=== PATIENT | female | born 1980 | race American Indian/Alaskan Native ===

== ENCOUNTER 2017-05-12 00:28 | Emergency (ER) | payer BC, OTHER ==
[2017-05-12] MEDS ORDERED: Acetaminophen/HYDROcodone 325-10 MG Tab PO ONE (00:48)
[2017-05-12] MEDS ORDERED: Lidocaine 2% Viscous Solution 15 ML Cup PO ONE (00:48)
--- NOTE | 2017-05-12 00:54 | EDM.PDOC ---
ED HPI GENERAL MEDICAL PROBLEM - General Chief Complaint: ENT Problem Stated Complaint: TOOTHACHE [id number] Time Seen by Provider: 05/12/17 00:45 Source of Information: Reports: Patient History Limitations: Reports: No Limitations - History of Present Illness INITIAL COMMENTS - FREE TEXT/NARRATIVE: This 36 yo female patient reports to the ED with a 12 hour history of increase dental pain on her right upper jaw. The patient reports she did call the dentist today, was started on Amoxicillin and has an appointment scheduled for Wednesday. The patient reports she has taken ibuprofen and Excederin with no symptom relief. Onset: Today Duration: Hour(s):, Constant, Getting Worse Location: Reports: Face Quality: Reports: Ache, Sharp Severity: Moderate Improves with: Reports: None Worsens with: Reports: None Associated Symptoms: Reports: No Other Symptoms Treatments LANGUAGE ASST: Reports: NSAIDS Left Upper Tooth/Teeth Pain Score (Numeric/FACES): 10 - Related Data Allergies Allergy/AdvReac Type Severity Reaction Status Date / Time No Known Drug Allergies Allergy Cannot Verified 05/12/17 00:43 Remember Home Meds: Home Meds Amoxicillin 500 mg PO QID 05/12/17 [History] Past Medical History HEENT History: Reports: Impaired Vision 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: - Past Surgical History GI Surgical History: Reports: Appendectomy Female Surgical History: Reports: Section Musculoskeletal Surgical History: Reports: Other (See Below) Other Musculoskeletal Surgeries/Procedures:: patient states she had surgery on right ankle in 2008 Social & Family History - Tobacco Use Smoking Status *Q: Never Smoker - Caffeine Use Caffeine Use: Reports: Soda - Alcohol Use Days Per Week of Alcohol Use: 1 Number of Drinks Per Day: 1 Total Drinks Per Week: 1 - Recreational Drug Use Recreational Drug Use: No ED ROS ENT - Review of Systems Review Of Systems: ROS reveals no pertinent complaints other than HPI. ED EXAM, ENT - Physical Exam Exam: See Below Exam Limited By: No Limitations General Appearance: Alert, WD/WN, Moderate Distress Eye Exam: Bilateral Eye: EOMI, Normal Inspection, PERRL Ears: Normal External Exam, Normal Canal, Hearing Grossly Normal, Normal TMs Nose: Normal Inspection, Normal Mucousa, No Blood Mouth/Throat: Dental Pain (left 2nd molar upper) Head: Atraumatic, Normocephalic Neck: Normal Inspection, Supple, Non-Tender, Full Range of Motion Respiratory/Chest: No Respiratory Distress, Lungs Clear, Normal Breath Sounds, No Accessory Muscle Use, Chest Non-Tender Cardiovascular: Normal Peripheral Pulses GI/Abdominal: Normal Bowel Sounds, Soft, Non-Tender, No Organomegaly, No Distention, No Abnormal Bruit, No Mass (Female) Exam: Deferred Rectal (Female) Exam: Deferred Back: Normal Inspection, Full Range of Motion Extremities: Normal Inspection, Normal Range of Motion, Non-Tender, No Pedal Edema, Normal Capillary Refill Neurological: Alert, Oriented, CN II-XII Intact, Normal Cognition, Normal Gait, Normal Reflexes, No Motor/Sensory Deficits Psychiatric: Normal Affect, Normal Mood Skin: Warm, Dry, Intact, Normal Color, No Rash Lymphatic: No Adenopathy Course - Vital Signs Last Recorded V/S: Last Vital Signs Temp 36.4 C 05/12/17 00:36 Pulse 76 05/12/17 00:36 Resp 16 05/12/17 00:36 BP 151/107 H 05/12/17 00:44 Pulse Ox 99 05/12/17 00:36 - Orders/Labs/Meds Meds: Medications Discontinued Medications Generic Name Dose Route Start Last Admin Trade Name Dinesh PRN Reason Stop Dose Admin Hydrocodone Bitart/Acetaminophen 1 tab 05/12/17 00:48 05/12/17 00:53 [place] 325-10 Mg PO 05/12/17 00:49 1 tab ONETIME ONE Administration Lidocaine HCl 15 ml 05/12/17 00:48 05/12/17 00:53 Xylocaine 2% Viscous PO 05/12/17 00:49 15 ml ONETIME ONE Administration Departure - Departure Time of Disposition: 00:51 Disposition: Home, Self-Care 01 Condition: Fair Clinical Impression: Pain, dental - Discharge Information Instructions: Dental Abscess, [id number] Forms: ED Department Discharge Care Plan Goals: The patient was advised of the examination results during the visit. The patient was given an oral dose of [place] and Viscous Lidocaine while in the ED. The patient was discharged with a script for Viscous Lidocaine 2% #100 mL to use 10 mL applied to a cotton ball to the area every 6 hours as needed for pain. The patient should continue taking the antibiotics as prescribed by her dentist. If the patient has any additional symptoms or concerns, the patient should follow-up with her primary care facility or return to the emergency department.
== END 2017-05-12 01:04 | disposition home or self-care (01) ==
LOC: DL.ED 00:28
DX: K08.89 Other specified disorders of teeth and supporting structures (principal)
CPT/HCPCS: 99282; A9270

== ENCOUNTER 2018-08-15 06:02 | Inpatient (IN) | payer BC, OTHER ==
[~2018-08-15 06:02] MED LIST: Citric Acid/Sodium Citrate Solution 30 ML Cup PO ONE; Lactated Ringers 1,000 ML IV ONE; Sodium Chloride 0.9% 10 ML Syringe FLUSH PRN; Tranexamic Acid 1,000 MG in Sodium Chloride 0.9% 100 ML IV PRN; ceFAZolin 2 GM in Premix Bag 1 BAG IV ONE
[2018-08-15] MEDS: Lactated Ringers 1,000 ML IV SCH ×4 (07:00→21:08)
[2018-08-15] MEDS ORDERED: Oxytocin/Normal Saline 60 UNIT/1,000 ML BAG ONE (07:01)
[2018-08-15] MEDS ORDERED: Acetaminophen 325 MG Tab PO PRN (07:35)
[2018-08-15] MEDS ORDERED: Acetaminophen/oxyCODONE 325-5 MG Tab PO PRN ×2 (07:35)
[2018-08-15] MEDS ORDERED: diphenhydrAMINE 50 MG/ML SDV IVPUSH PRN (07:35)
[2018-08-15] MEDS ORDERED: Naloxone 2 MG/2 ML Syringe IVPUSH PRN (07:35)
[2018-08-15] MEDS ORDERED: ePHEDrine 50 MG/ML SDV IVPUSH PRN (07:35)
[2018-08-15] MEDS ORDERED: Misoprostol 400 MCG (4 X 100 MCG TAB) RECTAL PRN (07:35)
[2018-08-15] MEDS ORDERED: Carboprost Tromethamine 250 MCG/1 ML Amp IM ONE (07:35)
[2018-08-15] MEDS ORDERED: Famotidine 20 MG/2 ML SDV IVPUSH ONE (07:37)
[2018-08-15] MEDS ORDERED: Lactated Ringers 1,000 ML IV SCH (07:45)
[2018-08-15] MEDS ORDERED: Oxytocin/Normal Saline 30 UNIT/500 ML BAG IV SCH (08:00)
[2018-08-15] MEDS: Simethicone 80 MG Tab.Chew PO SCH ×4 (11:04→20:58)
[2018-08-15] MEDS: Prenatal Multivitamin with Calcium/Folic Acid/Iron Tab PO SCH (11:04)
[2018-08-15] MEDS ORDERED: Promethazine 25 MG/ML SDV IM PRN (12:45)
[2018-08-15] MEDS: Ketorolac 30 MG/ML SDV IVPUSH SCH ×2 (14:47→20:59)
--- NOTE | 2018-08-15 15:07 | HP ---
CHIEF COMPLAINT: Repeat elective section. HISTORY OF PRESENT ILLNESS: The patient is a 38-year-old, 3, para 2-0-0 - 2 at 37 weeks 1 days' gestation, presenting for elective repeat section due to gestational hypertension and history of section x2. The patient reports active movement. Denies contractions, leakage of fluid, or vaginal bleeding. The patient also denies new-onset headaches, vision changes, shortness of breath, abdominal pain, changes in bowel or bladder function. Reports trace swelling in hands and feet bilaterally. HISTORY: 1. Term female born at 40 weeks 1 day' gestation via low transverse section. weight 3856 g. Name: Krzysztof. 2. Term female infant born at 39 weeks 2 days' gestation via repeat low transverse section. weight 3289 g. Name: Tom. PAST MEDICAL HISTORY: 1. Ankle fracture. 2. Blood type: A positive. 3. History of chicken pox as a child. 4. Gastroenteritis. 5. Migraines. PAST SURGICAL HISTORY: 1. Ankle surgery. 2. Low transverse section x2. 3. Appendectomy. FAMILY HISTORY: No significant family history noted. SOCIAL HISTORY: The patient is to Roger. Has 2 children, Krzysztof and Tom. 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 No smoke exposure. CURRENT MEDICATIONS: 1. Labetalol 100 mg p.o. t.i.d. 2. vitamin with iron. 3. Calcium and vitamin D supplement. Medications taken during : Above-stated medications and aspirin 81 mg once daily. ALLERGIES: No known allergies. REVIEW OF SYSTEMS: HEENT: Denies headaches, change in vision, nasal congestion, changes in hearing or swallowing. Pulmonary: Positive for shortness of breath history, especially when anxious and is worse during . No shortness of breath at this time. Cardiovascular: Denies chest pain, palpitations, or dyspnea on exertion. Denies calf pain. Noted trace swelling in hands and feet bilaterally, worse as days progress. Gastrointestinal: Negative for nausea, vomiting, and abdominal pain. No changes in bowel or bladder habits. Extremities: No stiffness or decreased range of motion. Positive for swelling in hands and feet bilaterally. Skin: No new rashes or dry skin. Neurologic: Denies loss of consciousness, weakness, decreased strength or range of motion. Positive for sciatica in left leg during . OBJECTIVE: Vital Signs: Temperature 98.2 degrees Fahrenheit, HR 104 bpm, BP 132/75, RR 18, O2 saturation 99%. General: Alert, cooperative, in no acute distress. HEENT: Grossly normal. Pulmonary: Lungs are clear to auscultation bilaterally. Cardiovascular: Regular rate and rhythm. No murmurs noted. Abdomen: Soft, nontender. Gravid uterus palpated. Extremities: Trace edema in ankles and hands bilaterally. Neurologic: Grossly normal. RECENT LABORATORY RESULTS: 1. Hematology: WBC 11.5, RBC 4.6, Hgb 13.5, Hct 40, platelet count 248. 2. Chemistry: BUN 10, creatinine 0.6. AST 17, ALT 14. Lactate dehydrogenase 119. 3. Urinalysis: Color is yellow, appearance is slightly cloudy, pH 6.5, specific gravity 1.025, protein trace, glucose negative, ketones trace, occult blood moderate, nitrite negative, bilirubin negative, urobilinogen 0.2, leukocyte esterase negative, urine random creatinine 136, urine random total protein 22, and protein-creatinine ratio 0.16. These labs were taken on 08/11/2018. Today's lab results are pending. GBS negative, blood type A positive, rubella immune, Tdap received on 06/30/2018 and 06/16/2018. Did not receive influenza vaccine. ASSESSMENT: The patient is a 38-year-old 3, para 2 female at 37 weeks 0 days' gestation, presenting for elective repeat section due to gestational hypertension and history of section x2. 1. Gestational hypertension. 2. Advanced maternal age and a multigravida, third trimester. 3. High-risk in third trimester. 4. Abnormal glucose tolerance in . 5. History of section x2. 6. Heartburn during in third trimester. 7. Edema during in third trimester. 8. Intermittent proteinuria affecting in third trimester. 9. Acute cystitis with hematuria history during . PLAN: 1. Elective repeat section today. 2. Routine preoperative care. The patient was seen and evaluated today by myself and Dr. Enid Sevilla. Assessment and plan are under advisement of Dr. Enid Sevilla. -Mackenzie Coburn [facility] Patient seen and examined. Agree with note as scribed on my behalf by LU Collins. -dry cleaner presser 08/16/182027 MODL /[id number] MTDD
[2018-08-15] MEDS: Ondansetron 4 MG/2 ML SDV IV PRN ×2 (17:44→20:59)
[2018-08-15] MEDS: Docusate Sodium 100 MG Cap PO PRN (20:58)
--- NOTE | 2018-08-16 03:02 | OR ---
DATE: 08/15/2018 PREPROCEDURE DIAGNOSES: 1. Gestational hypertension with increasing proteinuria. 2. 37 and 1/7 weeks' intrauterine . 3. History of 2 sections. 4. Heartburn during . 5. Labile blood pressures. 6. Advanced maternal age. POSTPROCEDURE DIAGNOSES: 1. Gestational hypertension with increasing proteinuria. 2. 37 and 1/7 weeks' intrauterine . 3. History of 2 sections. 4. Heartburn during . 5. Labile blood pressures. 6. Advanced maternal age. 7. Delivery of a viable female . CONSENT: Discussed with the patient, her , and parents the indications, risks, benefits, and alternatives of proceeding with repeat low transverse section for delivery of the infant due to gestational hypertension with risk of developing preeclampsia and blood pressures requiring medications for management. Discussed with them risk of infection and plan for preoperative antibiotics; risk of bleeding to the point of requiring a blood transfusion; as well as its inherent risks of injury to any internal organs and adjacent structures including but not limited to large vessels, nerves, veins, intestines, bowel, bladder, uterus, fallopian tubes, ovaries, any other internal organs or adjacent structures, and also potential injury to the baby that would require transfer of the patient and/or baby to a larger center for additional care. Their questions were answered. Consent form signed and can be found in the chart. PROCEDURE PERFORMED: Repeat low transverse section. SURGEON: Enid Stapleton MD. TAR HEEL: Nikki Jaramillo MD. SECOND BIODIESEL TECHNOLOGY MANAGER: Mackenzie Coburn MS-III. ANESTHESIA: Spinal. FINDINGS: Moderate scar tissue noted. Thin lower uterine segment. No obvious window. Baby is a viable female. scores of 9 and 9, and weight 2990g, 6# 9oz. Length was 19 inches. PROCEDURE IN DETAIL: The patient was brought to the operating room, and spinal anesthesia was obtained. She was laid in the dorsal supine position with leftward tilt, and Wu indwelling catheter was placed. After testing, a skin incision was made with scalpel at 8:10 a.m. and carried down to the underlying fascia with cautery controlling any additional bleeding at that time. The fascia was incised in the midline and extended bilaterally using cautery. Fascia then grasped with Moo's, tented up, and rectus muscles were dissected off with cautery and blunt traction. Additional bleeding of the muscles was addressed as well. Inferior fascial edge then grasped with Moo's, tented up, and rectus muscles were dissected off in a similar fashion. The peritoneal cavity was entered with blunt finger dissection and traction. Sebastian O was then placed, and scalpel was used to make the uterine incision superior to the prior scar which was noted to be quite thin with adhesions of the bladder noted as well. Baby was delivered thereafter at 8:20 a.m. 's mouth and nose were bulb suctioned. Three-vessel umbilical cord was doubly clamped and cut, and the baby was taken to the warmer for further evaluation. Cord blood sample was then obtained, and placenta then delivered by gentle cord traction and concomitant uterine massage. Placenta inspected after the case and verified intact. Uterus was cleared of all clots and debris using a dry lap sponge. Hysterotomy site then closed with a running lock suture of 1-0 Vicryl in the usual fashion. There was 1 small area of bleeding on the left side of the incision which was made hemostatic with a single [id number] suture. This layer was irrigated and hemostasis confirmed. Sebastian retractor was then removed, and pericolic gutters were cleared of all clots and debris. Hysterotomy site reinspected and remained hemostatic. Peritoneal and muscle layer was then brought together in the midline. This layer was then irrigated and hemostasis confirmed. Fascia was then closed with a running stitch of 0 looped PDS in the usual fashion. Subcutaneous tissue was irrigated and cleared of any clots and debris, and small bleeders were controlled with cautery. Skin was then closed with bucky. The patient had some vomiting during the case, but otherwise, tolerated the procedure well. There were no complications. The end of surgery was at 8:57 a.m. ESTIMATED BLOOD LOSS: 250 mL. URINE OUTPUT: 50 mL, clear. FLUIDS: 2000 mL of lactated Ringer's and 250 mL with Pitocin. DISPOSITION: Mother and baby will be reunited after mother recovers in the PACU, and baby has been taken down to the nursery. [facility] /[id number] [facility]
[2018-08-16] MEDS: Ketorolac 30 MG/ML SDV IVPUSH SCH (03:18)
--- NOTE | 2018-08-16 07:47 | PN ---
DATE: 08/16/2018 SUBJECTIVE: The patient is a 38-year-old, 3, para 2-0-0-2, status post day #1 of repeat elective low transverse section at 37 weeks 1-day gestation. Overnight, the patient had no complaints. She is slow to tolerate activity and has not yet gotten out of bed. She is planning to do that this morning. She is tolerating solid foods. She still has a Wu catheter in place. She is passing flatus, has not yet had a bowel movement. She is formula feeding. She endorses minimal cramping and bleeding along with minimal discomfort at this time. The patient has no other concerns. OBJECTIVE: Vital Signs: Temp is 98.3 degrees Fahrenheit, HR 85 beats per minute, BP 126/79, RR 18 breaths per minute, O2 saturation 93% on room air. General: The patient is alert, cooperative, in no acute distress. HEENT: Grossly normal. Cardiovascular: Regular rate and rhythm. No murmurs noted. Pulmonary: No increased work of breathing. Fine crackles heard in lower lung bases bilaterally. Abdomen: Soft, nontender, and nondistended. Normoactive bowel sounds. Uterus palpated 5 cm below the umbilicus, firm. Extremities: No edema or erythema. Calves are nontender to palpation. SCDs are on and being utilized. Neurologic: Normal range of motion and strength in extremities. Grossly normal. ASSESSMENT: The patient is postoperative day #1 from elective repeat low- transverse section and delivery of a term female infant at 37 weeks 1- day gestation. Doing well. 1. 2. POD#1 repeat 3. Labial HTN in 4. Obesity 5. Heartburn PLAN: 1. Continue routine postoperative cares. 2. Formula feeding. The patient was seen and evaluated today by myself and Dr. Enid Sevilla. Assessment and plan are under advisement of Dr. Sevilla. .Patient seen and examined. Agree with note as scribed on my behalf by Mackenzie Coburn MS3. -professor of biochemistry 08/16/18 2102 MODL /[id number] [facility]
[2018-08-16] MEDS: Simethicone 80 MG Tab.Chew PO SCH ×4 (08:16→21:08)
[2018-08-16] MEDS: Prenatal Multivitamin with Calcium/Folic Acid/Iron Tab PO SCH (08:17)
[2018-08-16] MEDS ORDERED: Oxytocin/Normal Saline 30 UNIT/500 ML BAG IV ONE (13:45)
[2018-08-16] MEDS ORDERED: Lactated Ringers 1,000 ML IV ONE (14:42)
[2018-08-16] MEDS ORDERED: Ketorolac 30 MG/ML SDV IVPUSH ONE (14:42)
[2018-08-16] MEDS ORDERED: Ondansetron 4 MG/2 ML SDV IV ONE (14:42)
[2018-08-16] MEDS ORDERED: Morphine PF 1 MG/ML Amp ONE (14:42)
[2018-08-16] MEDS ORDERED: ePHEDrine 50 MG/ML SDV IV ONE (14:42)
[2018-08-16] MEDS ORDERED: Promethazine 25 MG/ML SDV IM ONE (14:42)
[2018-08-16] MEDS ORDERED: Dexamethasone 4 MG/ML SDV IV ONE (14:42)
[2018-08-16] MEDS: Ibuprofen 800 MG Tab PO PRN ×2 (15:18→22:50)
[2018-08-16] MEDS ORDERED: Simethicone 80 MG Tab.Chew PO PRN (19:49)
[2018-08-16] MEDS ORDERED: Calcium Carbonate 500 MG Tab.Chew PO PRN (21:02)
[2018-08-16] MEDS: Docusate Sodium 100 MG Cap PO PRN (21:09)
[2018-08-17] MEDS: Prenatal Multivitamin with Calcium/Folic Acid/Iron Tab PO SCH (08:59)
[2018-08-17] MEDS: Docusate Sodium 100 MG Cap PO PRN (08:59)
[2018-08-17] MEDS: Simethicone 80 MG Tab.Chew PO SCH (08:59)
[2018-08-17] MEDS: Ibuprofen 800 MG Tab PO PRN (09:00)
--- NOTE | 2018-08-17 20:27 | PN ---
DATE: 08/17/2018 SUBJECTIVE: The patient is a 38-year-old 3, para 2-0-0-2, now para 3-0- 0-3, status post day #2 of repeat elective low-transverse section at 37 weeks 1 day gestation. Overnight, the patient continues to have no complaints. She is ambulating, tolerating general diet, stooling and passing flatus and urinating appropriately. She is formula feeding her . She endorses minimal cramping and bleeding along with only mild discomfort at this time. The patient has no other concerns. OBJECTIVE: Vital Signs: Temp 98.7, HR 92 b.p.m., BP 143/80, RR 18 breaths per minute, and O2 sat 97% on room air. General: The patient is alert, cooperative, in no acute distress. HEENT: Grossly normal. Pulmonary: Lungs are clear to auscultation bilaterally. Cardiovascular: Regular rate and rhythm. No murmurs noted. Abdomen: Soft, nontender, nondistended, normoactive bowel sounds. Uterus palpated 5 cm below the umbilicus. Firm. Incision: Clean, dry, and intact. No erythema or edema noted. Incision is without dressing or bandages. Chanda are present. There is no weeping of serosanguineous fluid. Extremities: No edema or erythema. Calves are nontender to palpation. Neurologic: Normal range of motion and strength in extremities. Grossly normal. LABORATORY DATA: Recent lab results: Hematology: WBC 10.7, RBC 3.84, HGB 11.2, hematocrit 34.0, platelet count is 191. ASSESSMENT: Postoperative day #2 from elective repeat low-transverse section and delivery of early term female at 37 weeks 1 day gestation. Doing well. 1. 3, para 3-0-0-3. 2. Postoperative day #2 repeat section. 3. Labile hypertension in . 4. Obesity. 5. Heartburn. PLAN: 1. Continue routine postoperative cares. 2. Formula feeding . 3. The patient voiced desire to be discharged later today. The patient was seen and evaluated today by myself and Dr. Enid Sevilla. Assessment and plan are under advisement of Dr. Sevilla. Patient seen and examined. Agree with note as scribed on my behalf by Mackenzie Coburn, MS 3. -[facility] 08/17/18 2151. MODL /[id number] ASIM
--- NOTE | 2018-08-18 01:30 | DISCH ---
ADMITTING DIAGNOSES: 1. Gestational hypertension. 2. Advanced maternal age in a multigravida, third trimester. 3. High-risk in third trimester. 4. Abnormal glucose tolerance and . 5. History of section x2. 6. Heartburn during in third trimester. 7. Edema during in third trimester. 8. Intermittent proteinuria affecting in third trimester. 9. Acute cystitis with hematuria history during . 10.Intrauterine , 37 weeks and 1-day gestation. 11. 3, para 2-0-0-2. DISCHARGE DIAGNOSES: 1. Gestational hypertension. 2. Advanced maternal age in a multigravida, third trimester. 3. High-risk in third trimester. 4. Abnormal glucose tolerance and . 5. History of section x2. 6. Heartburn during in third trimester. 7. Edema during in third trimester. 8. Intermittent proteinuria affecting in third trimester. 9. Acute cystitis with hematuria history during . 10.Intrauterine , 37 weeks and 1-day gestation. 11. 3, para 2-0-0-2. 12.Group B streptococcus negative, A positive, rubella immune. 13.Delivery via elective repeat low transverse section. BRIEF HISTORY: The patient is a 38-year-old female with the above listed diagnoses who presented to Labor and Delivery for an elective repeat low transverse section and delivery of an early term girl. After the patient presented to Labor and Delivery, the patient underwent section without complications. The section was scheduled at this time due to labile/gestational hypertension treated with medication. Please see surgical delivery note for details. HOSPITAL COURSE: Good. The patient reported minimal cramping and bleeding. She was able to tolerate solid foods on postop day #1 along with ambulation, urination, and passing of flatus. She did report some tightness in the chest on postop hospital day #1 which relieved with ambulation and use of incentive spirometry. Incision was monitored and found to be healing well, held together with bucky. born at 0820 hours. scores were 9 and 9 at 1 minute and 5 minutes respectively. spent lots of time in room with family. The patient and are bottle feeding with formula. Due to ease of hospital course, the patient expressed eagerness to be discharged on postop hospital day #2. DISCHARGE CONDITION: Good. DISCHARGE PHYSICAL EXAMINATION: Vital Signs: Temperature 98.7 degrees Fahrenheit, HR 92 bpm, BP 143/80, RR 18 breaths per minute, and oxygen saturation 97% on room air. General: Awake, alert, and cooperative; in no acute distress. HEENT: Grossly normal. Pulmonary: Lungs are clear to auscultation bilaterally. Cardiovascular: Regular rate and rhythm. No murmurs noted. Abdomen: Soft, nondistended, and nontender. Normoactive bowel sounds. Firm uterus palpated 5 cm below the umbilicus. Incision: Incision without bandages or draping. Sutures were visualized. Incision was clean, dry, and intact. No erythema, edema, or serosanguineous fluid leakage. Extremities: No edema or erythema. No tenderness to palpation of calves bilaterally. Neurologic: Grossly normal. LABORATORY DATA: Hematology: WBC 10.7, RBC 3.84, hemoglobin 11.2, hematocrit 34.0, and platelet count 191. DISCHARGE MEDICATIONS: 1. Percocet. 2. Colace. 3. Ibuprofen. 4. vitamin. DISPOSITION: Home with family. FOLLOWUP: The patient is advised to follow up in clinic with Dr. Enid Sevilla this 08/19/2018, at 2:45 p.m. The patient is in agreement with this plan. Discharge evaluation was completed by myself and Dr. Enid Sevilla. Discharge evaluation is under advisement of Dr. Enid Sevilla. Patient seen and examined. Agree with note as scribed on my behalf by Mackenzie Coburn MS3. -linux solaris administrator 08/18/182013 [facility] /[id number] MTDNoe
== END 2018-08-17 12:38 | disposition home or self-care (01) | DRG 540 ==
LOC: DL.OB 06:02 → DL.MS 07:21 → OBSVTOIN 08:20
PROVIDERS: ADMIT Family Medicine; ATTEND Family Medicine
PROC: 10D00Z1 Extraction of Products of Conception, Low, Open Approach (ICD-10-PCS; principal; 2018-08-15)
DX: O34.211 Maternal care for low transverse scar from previous cesarean delivery (principal); O14.93 Unspecified pre-eclampsia, third trimester; O09.523 Supervision of elderly multigravida, third trimester; O99.810 Abnormal glucose complicating pregnancy; R12 Heartburn; Z3A.37 37 weeks gestation of pregnancy; Z37.0 Single live birth; Z90.49 Acquired absence of other specified parts of digestive tract
CPT/HCPCS: 36415; 59025; 82570; 84156; 85025; 85027; 86850; 86900; 86901; 94010; A9270-GY; J0690; J1100; J1885; J2274; J2405; J2550; J2590; J3490; J7120

== ENCOUNTER 2019-06-05 09:43 | Inpatient (IN) | payer BC, OTHER ==
--- NOTE | 2019-06-05 10:24 | EDM.PDOC ---
ED HPI GENERAL MEDICAL PROBLEM - General Chief Complaint: Fever Stated Complaint: POSSIBLE FLU Time Seen by Provider: 06/05/19 10:24 Source of Information: Reports: Patient, Family, RN, RN Notes Reviewed History Limitations: Reports: No Limitations - History of Present Illness INITIAL COMMENTS - FREE TEXT/NARRATIVE: Patient to ER with c/o fever and chills since yesterday. Patient admits to nausea but no vomiting. Patient c/o ear and throat pain. Denies exposure to influenza. States she has had a cough for about a week. Denies chest pains and SOB, but c/o severe body aches. Onset: Gradual Onset Date: 06/04/19 Throat Pain Score (Numeric/FACES): 10 head Pain Score (Numeric/FACES): 8 - Related Data Allergies Allergy/AdvReac Type Severity Reaction Status Date / Time No Known Allergies Allergy Verified 06/05/19 12:27 Home Meds: Home Meds Cefdinir [Omnicef] 300 mg PO BID #14 cap 06/08/19 [Rx] Doxycycline [Vibramycin] 100 mg PO Q12HR #14 cap 06/08/19 [Rx] Fluticasone Propionate [Flonase] 0 gm NASBOTH DAILY #1 bottle 06/08/19 [Rx] guaiFENesin [Mucinex] 600 mg PO BID #20 tab.er 06/08/19 [Rx] Past Medical History HEENT History: Reports: Impaired Vision Other HEENT History: wears glasses Cardiovascular History: Reports: Other (See Below) Other Cardiovascular History: intermittent hypertension Respiratory History: Reports: None Gastrointestinal History: Reports: GERD Genitourinary History: Reports: None 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: Musculoskeletal History: Reports: None Neurological History: Reports: None Psychiatric History: Reports: None Endocrine/Metabolic History: Reports: None Hematologic History: Reports: None Immunologic History: Reports: None Oncologic (Cancer) History: Reports: None Dermatologic History: Reports: None - Infectious Disease History Infectious Disease History: Reports: Chicken Pox - Past Surgical History Head Surgeries/Procedures: Reports: None Cardiovascular Surgical History: Reports: None GI Surgical History: Reports: Appendectomy Female Surgical History: Reports: Section Musculoskeletal Surgical History: Reports: Other (See Below) Other Musculoskeletal Surgeries/Procedures:: patient states she had surgery on right ankle in 2008 Social & Family History - Family History Family Medical History: Noncontributory - Tobacco Use Smoking Status *Q: Never Smoker Second Hand Smoke Exposure: No - Caffeine Use Caffeine Use: Reports: Coffee, Soda Other Caffeine Use: occ - Recreational Drug Use Recreational Drug Use: No ED ROS GENERAL - Review of Systems Review Of Systems: Comprehensive ROS is negative, except as noted in HPI. ED EXAM, GENERAL - Physical Exam Exam: See Below Exam Limited By: No Limitations General Appearance: Alert, WD/WN, Moderate Distress Eye Exam: Bilateral Eye: EOMI, Normal Inspection Ears: Normal External Exam, Hearing Grossly Normal Ear Exam: Bilateral Ear: TM normal Nose: Normal Inspection Throat/Mouth: Normal Inspection, Normal Voice, No Airway Compromise, Other ( sore throat) Head: Atraumatic, Normocephalic Neck: Normal Inspection, Supple, Non-Tender, Full Range of Motion Respiratory/Chest: No Respiratory Distress, No Accessory Muscle Use, Chest Non- Tender, Crackles (bases bilaterally) Cardiovascular: Normal Peripheral Pulses, Regular Rate, Rhythm, No Edema, No Gallop, No JVD, No Murmur, No Rub Peripheral Pulses: 2+: Radial (L), Radial (R) GI/Abdominal: Normal Bowel Sounds, Soft, Non-Tender (Female) Exam: Deferred Rectal (Female) Exam: Deferred Back Exam: Normal Inspection, Full Range of Motion, NT Extremities: Normal Inspection, Normal Range of Motion, Non-Tender, Normal Capillary Refill, No Pedal Edema Neurological: Alert, Oriented, CN II-XII Intact, Normal Cognition, Normal Gait, Normal Reflexes, No Motor/Sensory Deficits Psychiatric: Normal Affect, Normal Mood, Anxious Skin Exam: Warm, Dry, Intact, Normal Color, No Rash Lymphatic: No Adenopathy Course - Vital Signs Last Recorded V/S: Last Vital Signs Temp 97.1 F 06/08/19 07:07 Pulse 88 06/08/19 07:07 Resp 20 06/08/19 07:07 BP 134/91 H 06/08/19 07:07 Pulse Ox 96 06/08/19 07:07 - Orders/Labs/Meds Labs: Laboratory Tests 06/05/19 06/05/19 06/05/19 Range/Units 10:50 10:50 10:50 WBC 21.5 H (5.0-10.0) 10^3/uL RBC 4.94 (4.2-5.4) 10^6/uL Hgb 13.2 D (12.0-16.0) g/dL Hct 39.2 (37.0-47.0) % MCV 79.4 L D (80-100) fL MCH 26.7 L (27.0-34.0) pg MCHC 33.7 (33.0-35.0) g/dL Plt Count 267 D (150-450) 10^3/uL Neut % (Auto) 91.1 H (42.2-75.2) % Lymph % (Auto) 3.9 L (20.5-50.1) % [place] % (Auto) 4.9 (2-8) % Eos % (Auto) 0.0 L (1.0-3.0) % Baso % (Auto) 0.1 (0.0-1.0) % Sodium 133 L (135-145) mmol/L Potassium 3.4 L (3.6-5.0) mmol/L Chloride 100 L (101-111) mmol/L Carbon Dioxide 22.0 (21.0-31.0) mmol/L Anion Gap 14.4 BUN 10 (7-18) mg/dL Creatinine 0.7 (0.6-1.3) mg/dL Est Cr Clr Drug Dosing 104.01 mL/min Estimated GFR (MDRD) > 60 BUN/Creatinine Ratio 14.28 Glucose 107 H (74-105) mg/dL Lactic Acid 1.7 (0.5-2.2) mmol/L Calcium 8.7 (8.4-10.2) mg/dl Total Bilirubin 0.8 (0.2-1.0) mg/dL AST 26 (10-42) IU/L ALT 34 (10-60) IU/L Alkaline Phosphatase 73 (42-121) IU/L Total Protein 8.0 (6.7-8.2) g/dl Albumin 3.9 (3.2-5.5) g/dl Globulin 4.1 Albumin/Globulin Ratio 0.95 influenza A: Negative Influenza B: Negative Rapid strep: Negative Meds: Medications Discontinued Medications Generic Name Dose Route Start Last Admin Trade Name Freq PRN Reason Stop Dose Admin Acetaminophen 650 mg 06/05/19 10:30 06/05/19 11:03 Tylenol PO 06/05/19 10:31 650 mg NOW ONE Administration Acetaminophen 650 mg 06/05/19 14:06 06/06/19 21:27 Tylenol PO 650 mg Q4H PRN Administration Pain Benzocaine/Menthol 1 lozenge 06/06/19 11:10 06/07/19 08:28 Cepacol Sore Throat MUCMEM 1 lozenge Q4H PRN Administration Sore Throat Docusate Sodium 100 mg 06/05/19 13:17 Colace PO DAILY PRN Constipation Doxycycline Hyclate 100 mg 06/08/19 10:30 06/08/19 10:27 Vibramycin PO 100 mg Q12HR FREDIS Administration Enoxaparin Sodium 40 mg 06/06/19 09:00 06/08/19 08:40 Lovenox SUBCUT 40 mg DAILY FREDIS Administration Fluticasone Propionate 0 gm 06/05/19 13:25 06/08/19 08:40 Flonase NASBOTH 1 spray DAILY FREDIS Administration Guaifenesin 600 mg 06/06/19 11:11 06/08/19 08:40 Mucinex PO 600 mg BID FREDIS Administration Sodium Chloride 1,000 mls @ 999 mls/hr 06/05/19 10:30 06/05/19 10:54 Normal Saline IV 06/05/19 11:30 999 mls/hr .BOLUS ONE Administration Ceftriaxone Sodium 1 gm/ 50 mls @ 50 mls/hr 06/05/19 11:36 06/05/19 11:50 Sodium Chloride IV 06/05/19 12:35 50 mls/hr ONETIME ONE Administration Sodium Chloride 1,000 mls @ 999 mls/hr 06/05/19 11:36 06/05/19 12:33 Normal Saline IV 06/05/19 12:36 999 mls/hr .BOLUS ONE Administration Azithromycin 500 mg/ Sodium 250 mls @ 250 mls/hr 06/05/19 11:48 06/05/19 13: 41 Chloride IV 06/05/19 12:47 Not Given ONETIME ONE Azithromycin 500 mg/ Sodium 250 mls @ 250 mls/hr 06/05/19 13:30 06/05/19 13: 40 Chloride IV 06/05/19 14:29 250 mls/hr ONETIME ONE Administration Ceftriaxone Sodium 2 gm/ 100 mls @ 200 mls/hr 06/06/19 13:00 06/07/19 17:24 Sodium Chloride IV Infused Q24H [facility] Infusion Azithromycin 500 mg/ Sodium 250 mls @ 250 mls/hr 06/06/19 13:30 Chloride IV Q24H FREDIS Ceftriaxone Sodium 1 gm/ 50 mls @ 100 mls/hr 06/05/19 18:00 06/05/19 17:59 Sodium Chloride IV 06/05/19 18:29 100 mls/hr ONETIME ONE Administration Vancomycin HCl 1.5 gm/ Premix 300 mls @ 200 mls/hr 06/06/19 12:00 06/06/19 13 :50 IV 06/06/19 13:29 Infused ONETIME ONE Infusion Vancomycin HCl 1.25 gm/ Sodium 250 mls @ 166.667 mls/hr 06/06/19 20:00 23:45 Chloride IV Not Given Q8H [facility] Vancomycin HCl 1.25 gm/ Sodium 250 mls @ 166.667 mls/hr 06/07/19 22:00 07:35 Chloride IV Infused Q8H [facility] Infusion Ibuprofen 200 mg 06/05/19 19:30 06/07/19 04:27 Motrin PO 200 mg Q6H PRN Administration Pain/Fever Ketorolac Tromethamine 30 mg 06/05/19 10:30 06/05/19 10:58 Toradol IVPUSH 06/05/19 10:31 30 mg ONETIME ONE Administration Ondansetron HCl 4 mg 06/05/19 10:30 06/05/19 10:56 Zofran IV 06/05/19 10:31 4 mg ONETIME ONE Administration Ondansetron HCl 4 mg 06/05/19 13:26 Zofran IV Q6H PRN Nausea/Vomiting Potassium Chloride 40 meq 06/06/19 09:15 06/06/19 10:34 Klor-Con 10 PO 06/06/19 09:16 40 meq ONETIME ONE Administration Potassium Chloride 20 meq 06/06/19 12:00 06/06/19 11:51 Klor-Con 10 PO 06/06/19 12:01 20 meq ONETIME ONE Administration Potassium Chloride 40 meq 06/07/19 08:18 06/07/19 09:52 Klor-Con 10 PO 06/07/19 08:19 40 meq ONETIME ONE Administration Potassium Chloride 40 meq 06/08/19 09:37 06/08/19 10:07 Klor-Con 10 PO 06/08/19 09:38 40 meq ONETIME ONE Administration Sodium Chloride 10 ml 06/05/19 10:28 06/06/19 14:19 Saline Flush FLUSH 10 ml ASDIRECTED PRN Administration Keep Vein Open Vancomycin HCl 1 dose 06/06/19 11:15 Pharmacy To Dose - Vancomycin .XX ASDIRECTED FREDIS - Radiology Interpretation Free Text/Narrative:: Chest xray: FINDINGS: Lungs: Atelectasis and/or early infiltrate noted within the lung bases, greater on the right. Pleural space: Unremarkable. No pleural effusion. No pneumothorax. Heart/Mediastinum: Unremarkable. No cardiomegaly. Diaphragm: There is nonspecific elevation of the right hemidiaphragm. Bones/joints: Unremarkable. IMPRESSION: Atelectasis and/or early infiltrate noted within the lung bases, greater on the right. Thank you for allowing us to participate in the care of your patient. Dictated and Authenticated by: Joel Petit DO 06/05/2019 11:19 AM Central Time ([place] & [place]) See rad report - Re-Assessments/Exams Free Text/Narrative Re-Assessment/Exam: 06/05/19 11:40 Discussed patient case with Dr. Khoury who agreed to accept the patient for inpatient admission. Departure - Departure Time of Disposition: 12:14 Disposition: Admitted As Inpatient 68 Condition: Fair Clinical Impression: Pneumonia Qualifiers: Pneumonia type: due to unspecified organism Laterality: right Lung location: unspecified part of lung Qualified Code(s): J18.9 - Pneumonia, unspecified organism - Discharge Information *PRESCRIPTION DRUG MONITORING PROGRAM REVIEWED*: No *COPY OF PRESCRIPTION DRUG MONITORING REPORT IN PATIENT ENRIKE: No Sepsis Event Note - Evaluation Sepsis Screening Result: Possible Sepsis Risk - Focused Exam Date Exam was Performed: 06/15/19 Time Exam was Performed: 14:02
[2019-06-05] MEDS ORDERED: Sodium Chloride 0.9% 1,000 ML IV ONE ×2 (10:30→11:36)
[2019-06-05] MEDS ORDERED: Ketorolac 30 MG/ML SDV IVPUSH ONE (10:30)
[2019-06-05] MEDS ORDERED: Acetaminophen 325 MG Tab PO ONE (10:30)
[2019-06-05] MEDS ORDERED: Ondansetron 4 MG/2 ML SDV IV ONE (10:30)
[2019-06-05] MEDS: Sodium Chloride 0.9% 10 ML Syringe FLUSH PRN ×2 (11:01→20:26)
[2019-06-05 11:17] LABS: ANION GAP 14.4; CHLORIDE,CL 100 mmol/L (101-111); SODIUM,NA 133 mmol/L (135-145)
[2019-06-05] MEDS ORDERED: cefTRIAXone 1 GM in Sodium Chloride 0.9% 50 ML IV ONE ×2 (11:36→18:00)
[2019-06-05] MEDS ORDERED: Azithromycin 500 MG in Sodium Chloride 0.9% 250 ML IV ONE ×2 (11:48→13:30)
--- NOTE | 2019-06-05 13:01 | PCM.HP ---
H&P History of Present Illness - General Date of Service: 06/05/19 Admit Problem/Dx: Admitted with: Fever, Chill, weakness, sore throat Source of Information: Patient, Old Records History Limitations: Reports: No Limitations - History of Present Illness Initial Comments - Free Text/Narative: This is a 38 Y/O Moderately obese pleasant Female with no significant past medical history except Hypertension during her , No history of glucose intolerance, came to ED with complain of headache, sore throat, Fever/Chill, Nausea all started yesterday ( 06/04/19) around 2-3 PM and progressively getting worse. Her throat swab was negative for Strep and Influenza A and B were also negative. Lab showed elevated White count 21k and sodium of 133 meq/ L. CXR showed B/L lower lobe infiltrates and admitted for Likely CAP. Onset of Symptoms: Reports: Gradual Duration of Symptoms: Reports: Day(s):, Getting Worse Context: Denies: Sick Contact Associated Symptoms: Reports: Fever/Chills, Weakness Throat Pain Score (Numeric/FACES): 10 - Related Data Allergies/Adverse Reactions: Allergies Allergy/AdvReac Type Severity Reaction Status Date / Time No Known Allergies Allergy Verified 06/05/19 12:27 Home Medications: Home Meds . 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: Musculoskeletal History: Reports: None Neurological History: Reports: None Psychiatric History: Reports: None Endocrine/Metabolic History: Reports: None Hematologic History: Reports: None Immunologic History: Reports: None Oncologic (Cancer) History: Reports: None Dermatologic History: Reports: None - Infectious Disease History Infectious Disease History: Reports: Chicken Pox - Past Surgical History Head Surgeries/Procedures: Reports: None Cardiovascular Surgical History: Reports: None GI Surgical History: Reports: Appendectomy Female Surgical History: Reports: Section Musculoskeletal Surgical History: Reports: Other (See Below) Other Musculoskeletal Surgeries/Procedures:: patient states she had surgery on right ankle in 2008 Social & Family History - Family History Family Medical History: Noncontributory - Tobacco Use Smoking Status *Q: Never Smoker Second Hand Smoke Exposure: No - Caffeine Use Caffeine Use: Reports: Coffee, Soda Other Caffeine Use: occ - Recreational Drug Use Recreational Drug Use: No H&P Review of Systems - Review of Systems: Review Of Systems: See Below General: Reports: Fever, Chills, Weakness, Fatigue, Decreased Appetite HEENT: Reports: Sinus Congestion, Sore Throat. Denies: Ear Pain, Post Nasal Drip, Visual Changes Pulmonary: Denies: Shortness of Breath, Wheezing, Cough, Sputum Cardiovascular: Denies: Dyspnea on Exertion, Edema, Blood Pressure Problem Gastrointestinal: Reports: Nausea. Denies: Abdominal Pain, Diarrhea, Vomiting Genitourinary: Denies: Dysuria, Burning, Urgency, Flank Pain Musculoskeletal: Denies: Neck Pain, Shoulder Pain, Foot Pain, Muscle Stiffness Skin: Denies: Jaundice Exam - Exam Exam: See Below - Vital Signs Vital Signs: Last Vital Signs Temp 38.7 C H 06/05/19 11:37 Pulse 129 H 06/05/19 11:37 Resp 20 06/05/19 10:04 BP 143/78 H 06/05/19 11:37 Pulse Ox 94 L 06/05/19 11:37 Weight: 103.873 kg - Exam Quality Assessment: DVT Prophylaxis. No: Supplemental Oxygen, Central Line/PICC , Urinary Catheter General: Alert, Oriented, Cooperative HEENT: Conjunctiva Clear, EOMI, Hearing Intact, Mucosa Moist & [place], Pupils Equal Neck: Full Range of Motion. No: Lymphadenopathy, Thyromegaly Lungs: Clear to Auscultation, Normal Respiratory Effort. No: Crackles, Wheezing Cardiovascular: Regular Rate, Regular Rhythm, Normal S1, Normal S2 GI/Abdominal Exam: Normal Bowel Sounds, Soft, Non-Tender, No Organomegaly, No Distention. No: Guarding, Rigid, Rebound (Female) Exam: Deferred Rectal (Female) Exam: Deferred Back Exam: Normal Inspection, Full Range of Motion Extremities: Normal Inspection, No Pedal Edema Neurological: Cranial Nerves Intact, Reflexes Equal Bilateral Neuro Extensive - Mental Status: Alert, Oriented x3, Normal Mood/Affect, Normal Cognition, Memory Intact Neuro Extensive - Motor, Sensory, Reflexes: CN II-XII Intact, Normal Gait, Normal Reflexes Psychiatric: Alert, Normal Affect, Normal Mood - Patient Data Lab Results Last 24 hrs: Laboratory Results - last 24 hr 06/05/19 06/05/19 06/05/19 Range/Units 10:50 10:50 10:50 WBC 21.5 H (5.0-10.0) 10^3/uL RBC 4.94 (4.2-5.4) 10^6/uL Hgb 13.2 D (12.0-16.0) g/dL Hct 39.2 (37.0-47.0) % MCV 79.4 L D (80-100) fL MCH 26.7 L (27.0-34.0) pg MCHC 33.7 (33.0-35.0) g/dL Plt Count 267 D (150-450) 10^3/uL Neut % (Auto) 91.1 H (42.2-75.2) % Lymph % (Auto) 3.9 L (20.5-50.1) % [place] % (Auto) 4.9 (2-8) % Eos % (Auto) 0.0 L (1.0-3.0) % Baso % (Auto) 0.1 (0.0-1.0) % Sodium 133 L (135-145) mmol/L Potassium 3.4 L (3.6-5.0) mmol/L Chloride 100 L (101-111) mmol/L Carbon Dioxide 22.0 (21.0-31.0) mmol/L Anion Gap 14.4 BUN 10 (7-18) mg/dL Creatinine 0.7 (0.6-1.3) mg/dL Est Cr Clr Drug Dosing 104.01 mL/min Estimated GFR (MDRD) > 60 BUN/Creatinine Ratio 14.28 Glucose 107 H (74-105) mg/dL Lactic Acid 1.7 (0.5-2.2) mmol/L Calcium 8.7 (8.4-10.2) mg/dl Total Bilirubin 0.8 (0.2-1.0) mg/dL AST 26 (10-42) IU/L ALT 34 (10-60) IU/L Alkaline Phosphatase 73 (42-121) IU/L Total Protein 8.0 (6.7-8.2) g/dl Albumin 3.9 (3.2-5.5) g/dl Globulin 4.1 Albumin/Globulin Ratio 0.95 Result Diagrams: 06/05/19 10:50 06/05/19 10:50 [place] Results Last 24 hrs: Microbiology 06/05/19 10:48 Anaerobic Blood Culture - Final Blood - Venous - Lab Draw 06/05/19 10:02 Influenza Type A Antigen Screen - Final Nasal, Unspecified NEGATIVE INFLUENZA A VIRUS AG REFERENCE RANGE: NEGATIVE Influenza Type B Antigen Screen - Final NEGATIVE INFLUENZA B VIRUS AG REFERENCE RANGE: NEGATIVE 06/05/19 10:02 Group A Streptococcus Rapid Screen - Final Throat NEGATIVE STREP A SCREEN REFERENCE RANGE: NEGATIVE - Problem List (1) Fever and chills SNOMED Code(s): 838896800 ICD Code: R50.9 - FEVER, UNSPECIFIED Status: Acute Current Visit: Yes (2) CAP (community acquired pneumonia) SNOMED Code(s): 767265210 ICD Code: J18.9 - PNEUMONIA, UNSPECIFIED ORGANISM Status: Acute Current Visit: Yes (3) Sore throat SNOMED Code(s): 241055787 ICD Code: J02.9 - ACUTE PHARYNGITIS, UNSPECIFIED Status: Acute Current Visit: Yes (4) Nausea SNOMED Code(s): 493963058 ICD Code: R11.0 - NAUSEA Status: Acute Current Visit: Yes Problem List Initiated/Reviewed/Updated: Yes Orders Last 24hrs: Active Orders 24 hr Category Date Time Status Peripheral IV Care [RC] . DIRECTED Care 06/05/19 10:29 Active CULTURE BLOOD [BC] Stat Lab 06/05/19 10:48 Results CULTURE BLOOD [BC] Stat Lab 06/05/19 10:50 Received CULTURE STREP A CONFIRMATION [RM] Stat Lab 06/05/19 10:02 Results HCG QUALITATIVE,URINE [URCHEM] Routine Lab 06/05/19 12:51 Ordered STREP SCRN A RAPID W CULT CONF [RM] Stat Lab 06/05/19 10:02 Results UA W/DEVANTE RFLX IF INDICATED [URIN] Routine Lab 06/05/19 12:51 Ordered Sodium Chloride 0.9% [Saline Flush] Med 06/05/19 10:28 Active 10 ml FLUSH ASDIRECTED PRN Blood Culture x2 Reflex Set [OM.PC] Stat Oth 06/05/19 10:29 Ordered Peripheral IV Insertion Adult [OM.PC] Stat Oth 06/05/19 10:29 Ordered Medication Orders Sodium Chloride (Saline Flush) 10 ml FLUSH ASDIRECTED PRN PRN Reason: Keep Vein Open Last Admin: 06/05/19 11:01 Dose: 10 ml Assessment/Plan Comment:: This is a 38 Y/O Moderately obese, pleasant Female with no significant past medical history except Hypertension during her , No history of glucose intolerance, came to ED with complain of headache, sore throat, Fever/Chill, Nausea all started yesterday ( 06/04/19) around 2-3 PM and progressively getting worse. Her throat swab was negative for Strep and Influenza A and B were also negative. Lab showed elevated White count 21k and sodium of 133 meq/ L. CXR showed B/L lower lobe infiltrates and admitted for Like CAP 1. Likely Community acquired pneumonia: Pt had CXR showing B/L lung base Infiltrate -Will continue Ceftriaxone and Azithromycin -Follow B/C and Urine Culture 2. Sore throat: throat swab is negative for strep and also she Negative for Influenza A and B 3. Nausea: Will start Zofran as needed 4. Fever/Chill: Continue abx and Tylenol as needed DVT prophylaxis: start Enoxaparin Code Status: Full Code
[2019-06-05] MEDS ORDERED: Docusate Sodium 100 MG Cap PO PRN (13:17)
[2019-06-05] MEDS ORDERED: Ondansetron 4 MG/2 ML SDV IV PRN (13:26)
[2019-06-05] MEDS: Acetaminophen 325 MG Tab PO PRN (16:23)
[2019-06-05] MEDS: Fluticasone Propionate Nasal Spray 16 GM Bottle NASBOTH SCH (16:24)
[2019-06-05] MEDS: Ibuprofen 200 MG Tab PO PRN (20:22)
[2019-06-06] MEDS: Ibuprofen 200 MG Tab PO PRN ×3 (02:44→19:41)
[2019-06-06 07:04] LABS: ANION GAP 13.1; CHLORIDE,CL 101 mmol/L (101-111); SODIUM,NA 134 mmol/L (135-145)
[2019-06-06] MEDS ORDERED: Potassium Chloride 10 MEQ Tab.ER PO ONE ×2 (09:15→12:00)
[2019-06-06] MEDS: Fluticasone Propionate Nasal Spray 16 GM Bottle NASBOTH SCH (10:36)
[2019-06-06] MEDS: Enoxaparin 40 MG/0.4 ML Syringe SUBCUT SCH (10:37)
[2019-06-06] MEDS: guaiFENesin 600 MG Tab.ER PO SCH ×2 (11:46→21:28)
[2019-06-06] MEDS: Benzocaine/Cetylpyridinium/Menthol Lozenge MUCMEM PRN (12:08)
--- NOTE | 2019-06-06 13:12 | PCM.PN ---
- General Info Date of Service: 06/06/19 Admission Dx/Problem (Free Text): Admitted with: Fever, Chill, weakness, sore throat/Tonsillitis Subjective Update: Today she was seen in room had more inflamed throat, throat culture from yesterday is negative, she has difficulty with swallowing solid food, it hurts and got another culture today and also will change her abx. Functional Status: Reports: Pain Controlled, Tolerating Diet (but has difficulty with swallowing), Ambulating, Urinating - Review of Systems General: Reports: Appetite (good but throat hurts with swallowing). Denies: Fever, Chills HEENT: Reports: Ear Pain, Headaches, Sinus Congestion, Sore Throat. Denies: Visual Changes Pulmonary: Denies: Shortness of Breath, Cough, Sputum, Wheezing Cardiovascular: Denies: Chest Pain, Dyspnea on Exertion, Lightheadedness Gastrointestinal: Reports: Difficulty Swallowing (because throat hurts). Denies : Abdominal Pain, Nausea, Vomiting Genitourinary: Denies: Dysuria, Burning, Urgency, Flank Pain Musculoskeletal: Denies: Neck Pain, Shoulder Pain, Arm Pain, Foot Pain, Joint Swelling Skin: Denies: Cyanosis, Jaundice, Diaphoresis, Bruising, Pruritis, Rash Neurological: Denies: Confusion, Numbness, Tremors Psychiatric: Denies: Confusion - Patient Data Vitals - Most Recent: Last Vital Signs Temp 37.3 C 06/06/19 08:07 Pulse 102 H 06/06/19 08:07 Resp 20 06/06/19 08:07 BP 121/78 06/06/19 08:07 Pulse Ox 99 06/06/19 08:07 Weight - Most Recent: 103.873 kg I&O - Last 24 Hours: Intake & Output 06/05/19 06/06/19 06/06/19 22:59 06:59 14:59 Intake Total 800 Output Total 600 Balance 200 Lab Results Last 24 Hours: Laboratory Results - last 24 hr 06/05/19 06/05/19 06/06/19 Range/Units 12:45 12:45 05:55 WBC 21.3 H (5.0-10.0) 10^3/uL RBC 4.44 (4.2-5.4) 10^6/uL Hgb 11.8 L (12.0-16.0) g/dL Hct 35.9 L (37.0-47.0) % MCV 80.9 (80-100) fL MCH 26.6 L (27.0-34.0) pg MCHC 32.9 L (33.0-35.0) g/dL Plt Count 248 (150-450) 10^3/uL Sodium (135-145) mmol/L Potassium (3.6-5.0) mmol/L Chloride (101-111) mmol/L Carbon Dioxide (21.0-31.0) mmol/L Anion Gap BUN (7-18) mg/dL Creatinine (0.6-1.3) mg/dL Est Cr Clr Drug Dosing mL/min Estimated GFR (MDRD) Glucose (74-105) mg/dL Calcium (8.4-10.2) mg/dl Urine RBC 0-5 /HPF Urine WBC 20-30 H (0-5/HPF) /HPF Ur Epithelial Cells Moderate H (NOT SEEN) /HPF Urine Bacteria Moderate H (0-FEW/HPF) /HPF Urine Mucus Many H (NOT SEEN) /LPF Urine HCG, Qual Negative 06/06/19 Range/Units 05:55 WBC (5.0-10.0) 10^3/uL RBC (4.2-5.4) 10^6/uL Hgb (12.0-16.0) g/dL Hct (37.0-47.0) % MCV (80-100) fL MCH (27.0-34.0) pg MCHC (33.0-35.0) g/dL Plt Count (150-450) 10^3/uL Sodium 134 L (135-145) mmol/L Potassium 3.1 L (3.6-5.0) mmol/L Chloride 101 (101-111) mmol/L Carbon Dioxide 23.0 (21.0-31.0) mmol/L Anion Gap 13.1 BUN 8 (7-18) mg/dL Creatinine 0.7 (0.6-1.3) mg/dL Est Cr Clr Drug Dosing 104.01 mL/min Estimated GFR (MDRD) > 60 Glucose 115 H (74-105) mg/dL Calcium 8.5 (8.4-10.2) mg/dl Urine RBC /HPF Urine WBC (0-5/HPF) /HPF Ur Epithelial Cells (NOT SEEN) /HPF Urine Bacteria (0-FEW/HPF) /HPF Urine Mucus (NOT SEEN) /LPF Urine HCG, Qual [place] Results Last 24 Hours: Microbiology 06/06/19 10:28 Group A Streptococcus Rapid Screen - Final Throat NEGATIVE STREP A SCREEN REFERENCE RANGE: NEGATIVE 06/05/19 10:48 Aerobic Blood Culture - Preliminary Blood - Venous - Lab Draw NO GROWTH AFTER 1 DAY Anaerobic Blood Culture - Final 06/05/19 10:50 Aerobic Blood Culture - Preliminary Blood - Venous NO GROWTH AFTER 1 DAY Anaerobic Blood Culture - Preliminary NO GROWTH AFTER 1 DAY 06/05/19 10:02 Quick Strep Confirmation Culture - Final Throat NO GROUP A STREP ISOLATED REFERENCE RANGE: NEGATIVE Group A Streptococcus Rapid Screen - Final NEGATIVE STREP A SCREEN REFERENCE RANGE: NEGATIVE 06/05/19 10:02 Influenza Type A Antigen Screen - Final Nasal, Unspecified NEGATIVE INFLUENZA A VIRUS AG REFERENCE RANGE: NEGATIVE Influenza Type B Antigen Screen - Final NEGATIVE INFLUENZA B VIRUS AG REFERENCE RANGE: NEGATIVE Med Orders - Current: Current Medications Acetaminophen (Tylenol) 650 mg PO Q4H PRN PRN Reason: Pain Last Admin: 06/05/19 16:23 Dose: 650 mg Benzocaine/Menthol (Cepacol Sore Throat) 1 lozenge MUCMEM Q4H PRN PRN Reason: Sore Throat Last Admin: 06/06/19 12:08 Dose: 1 lozenge Docusate Sodium (Colace) 100 mg PO DAILY PRN PRN Reason: Constipation Enoxaparin Sodium (Lovenox) 40 mg SUBCUT DAILY [facility] Last Admin: 06/06/19 10:37 Dose: 40 mg Fluticasone Propionate (Flonase) 0 gm NASBOTH DAILY [facility] Last Admin: 06/06/19 10:36 Dose: 2 spray Guaifenesin (Mucinex) 600 mg PO BID [facility] Ceftriaxone Sodium 2 gm/ (Sodium Chloride) 100 mls @ 200 mls/hr IV Q24H [facility] Vancomycin HCl 1.5 gm/ Premix 300 mls @ 200 mls/hr IV ONETIME ONE Stop: 06/06/19 13:29 Last Admin: 06/06/19 12:08 Dose: 200 mls/hr Vancomycin HCl 1.25 gm/ Sodium (Chloride) 250 mls @ 166.667 mls/hr IV Q8H [facility] Ibuprofen (Motrin) 200 mg PO Q6H PRN PRN Reason: Pain/Fever Last Admin: 06/06/19 11:49 Dose: 200 mg Ondansetron HCl (Zofran) 4 mg IV Q6H PRN PRN Reason: Nausea/Vomiting Vancomycin HCl (Pharmacy To Dose - Vancomycin) 1 dose .XX ASDIRECTED [facility] Discontinued Medications Acetaminophen (Tylenol) 650 mg PO NOW ONE Stop: 06/05/19 10:31 Last Admin: 06/05/19 11:03 Dose: 650 mg Sodium Chloride (Normal Saline) 1,000 mls @ 999 mls/hr IV .BOLUS ONE Stop: 06/05/19 11:30 Last Admin: 06/05/19 10:54 Dose: 999 mls/hr Ceftriaxone Sodium 1 gm/ (Sodium Chloride) 50 mls @ 50 mls/hr IV ONETIME ONE Stop: 06/05/19 12:35 Last Admin: 06/05/19 11:50 Dose: 50 mls/hr Sodium Chloride (Normal Saline) 1,000 mls @ 999 mls/hr IV .BOLUS ONE Stop: 06/05/19 12:36 Last Admin: 06/05/19 12:33 Dose: 999 mls/hr Azithromycin 500 mg/ Sodium (Chloride) 250 mls @ 250 mls/hr IV ONETIME ONE Stop: 06/05/19 12:47 Last Admin: 06/05/19 13:41 Dose: Not Given Azithromycin 500 mg/ Sodium (Chloride) 250 mls @ 250 mls/hr IV ONETIME ONE Stop: 06/05/19 14:29 Last Admin: 06/05/19 13:40 Dose: 250 mls/hr Azithromycin 500 mg/ Sodium (Chloride) 250 mls @ 250 mls/hr IV Q24H [facility] Ceftriaxone Sodium 1 gm/ (Sodium Chloride) 50 mls @ 100 mls/hr IV ONETIME ONE Stop: 06/05/19 18:29 Last Admin: 06/05/19 17:59 Dose: 100 mls/hr Ketorolac Tromethamine (Toradol) 30 mg IVPUSH ONETIME ONE Stop: 06/05/19 10:31 Last Admin: 06/05/19 10:58 Dose: 30 mg Ondansetron HCl (Zofran) 4 mg IV ONETIME ONE Stop: 06/05/19 10:31 Last Admin: 06/05/19 10:56 Dose: 4 mg Potassium Chloride (Klor-Con 10) 40 meq PO ONETIME ONE Stop: 06/06/19 09:16 Last Admin: 06/06/19 10:34 Dose: 40 meq Potassium Chloride (Klor-Con 10) 20 meq PO ONETIME ONE Stop: 06/06/19 12:01 Last Admin: 06/06/19 11:51 Dose: 20 meq Sodium Chloride (Saline Flush) 10 ml FLUSH ASDIRECTED PRN PRN Reason: Keep Vein Open Last Admin: 06/05/19 20:26 Dose: 10 ml - Exam Quality Assessment: DVT Prophylaxis. No: Supplemental Oxygen, Urine Catheter General: Alert, Oriented, Cooperative, No Acute Distress HEENT: Pupils Equal, EOMI, Mucous Membr. Moist/[place], Other (Tonsils were inflamed and large) Neck: No JVD, No Thyromegaly, Lymphadenopathy, Thyromegaly Lungs: Clear to Auscultation, Normal Respiratory Effort. No: Crackles, Wheezing Cardiovascular: Regular Rate, Regular Rhythm, No Murmurs GI/Abdominal Exam: Normal Bowel Sounds, Soft, Non-Tender, No Organomegaly (Female) Exam: Deferred Back Exam: Normal Inspection, Full Range of Motion Extremities: Normal Inspection, No Pedal Edema Skin: Warm, Dry, Intact Neurological: No New Focal Deficit, Normal Speech Psy/Mental Status: Alert, Normal Affect, Normal Mood Sepsis Event Note - Evaluation Sepsis Screening Result: Sepsis Risk - Focused Exam Vital Signs: Vital Signs Temp Temp Pulse Resp BP Pulse Ox 06/06/19 08:07 37.3 C 102 H 20 121/78 99 06/06/19 04:00 37.2 C 06/06/19 03:44 37.2 C 06/06/19 02:44 37.4 C Date Exam was Performed: 06/06/19 Time Exam was Performed: 13:42 - Problem List & Annotations (1) Fever and chills SNOMED Code(s): 141220329 Code(s): R50.9 - FEVER, UNSPECIFIED Status: Acute Current Visit: Yes (2) CAP (community acquired pneumonia) SNOMED Code(s): 713033444 Code(s): J18.9 - PNEUMONIA, UNSPECIFIED ORGANISM Status: Acute Current Visit: Yes (3) Sore throat SNOMED Code(s): 304054088 Code(s): J02.9 - ACUTE PHARYNGITIS, UNSPECIFIED Status: Acute Current Visit: Yes (4) Nausea SNOMED Code(s): 223786247 Code(s): R11.0 - NAUSEA Status: Acute Current Visit: Yes (5) Acute bacterial tonsillitis SNOMED Code(s): 500938652 Code(s): J03.80 - ACUTE TONSILLITIS DUE TO OTHER SPECIFIED ORGANISMS; B96.89 - OTH BACTERIAL AGENTS THE CAUSE OF DISEASES CLASSD ELSWHR Status: Acute Current Visit: Yes - Problem List Review Problem List Initiated/Reviewed/Updated: Yes - My Orders Last 24 Hours: My Active Orders 06/07/19 19:30 VANCOMYCIN TROUGH [CHEM] Timed 06/05/19 13:17 Patient Status [ADT] Routine Up ad Lani [RC] ASDIRECTED Vital Signs [RC] Q4H Docusate Sodium [Colace] 100 mg PO DAILY PRN DVT/VTE Prophylaxis Reflex [OM.PC] Routine Resuscitation Status Routine 06/05/19 13:20 Oxygen Therapy [RC] .PRN Pulse Oximetry [RC] .PRN 06/05/19 13:21 Antiembolic Devices [RC] 08,20 VTE/DVT Education [RC] .PRN Antiembolic Hose [OM.PC] Per Unit Routine 06/05/19 13:25 Fluticasone Propionate [Flonase] 0 gm NASBOTH DAILY 06/05/19 13:26 Ondansetron [Zofran] 4 mg IV Q6H PRN 06/05/19 14:06 Acetaminophen [Tylenol] 650 mg PO Q4H PRN 06/05/19 19:30 Ibuprofen [Motrin] 200 mg PO Q6H PRN 06/06/19 09:00 Enoxaparin [Lovenox] 40 mg SUBCUT DAILY 06/06/19 10:28 CULTURE STREP A CONFIRMATION [RM] Routine STREP SCRN A RAPID W CULT CONF [RM] Routine 06/06/19 11:10 Benzocaine/Cetylpyrd/Menthol [Cepacol Sore Throat] 1 lozenge MUCMEM Q4H PRN 06/06/19 11:11 guaiFENesin [Mucinex] 600 mg PO BID 06/06/19 11:15 Pharmacy to Dose - Vancomycin 1 dose .XX ASDIRECTED 06/06/19 12:00 Vancomycin/Water For Inj (Peg) [Vancomycin 1.5 GM/300 ML Bag] 1.5 gm Premix Bag 1 bag IV ONETIME 06/06/19 13:00 cefTRIAXone [Rocephin] 2 gm Sodium Chloride 0.9% [Normal Saline] 100 ml IV Q24H 06/06/19 20:00 Vancomycin 1.25 gm Sodium Chloride 0.9% [Normal Saline] 250 ml IV Q8H - Plan Plan:: This is a 38 Y/O Moderately obese, pleasant Female with no significant past medical history except Hypertension during her , No history of glucose intolerance, came to ED with complain of headache, sore throat, Fever/Chill, Nausea all started yesterday ( 06/04/19) around 2-3 PM and progressively getting worse. Her throat swab was negative for Strep and Influenza A and B were also negative. Lab showed elevated White count 21k and sodium of 133 meq/ L. CXR showed B/L lower lobe infiltrates and admitted for CAP and now she has very inflamed tonsils 1. Likely Community acquired pneumonia: Pt had CXR showing B/L lung base Infiltrate -Will continue Ceftriaxone and stop azithromycin -Follow B/C and Urine Culture 2. Sore throat: Throat swab is negative for strep and also she Negative for Influenza A and B, will start Cepacol 3. Nausea: Will continue Zofran as needed 4. Fever/Chill: Continue abx and Tylenol as needed 5. Tonsillitis: She gets tonsil inflammation recurrently, she has very large Tonsils and she needs Tonsillectomy but she is now likely has infected tonsils -Will start her on Vancomycin from today 6. Nasal Congestion: Will continue Flonase and also Mucinex DVT prophylaxis: Continue Enoxaparin Code Status: Full Code
[2019-06-06] MEDS ORDERED: Azithromycin 500 MG in Sodium Chloride 0.9% 250 ML IV SCH (13:30)
[2019-06-06] MEDS: cefTRIAXone 2 GM in Sodium Chloride 0.9% 100 ML IV SCH (13:50)
[2019-06-06] MEDS: Sodium Chloride 0.9% 10 ML Syringe FLUSH PRN (14:19)
[2019-06-06] MEDS: Acetaminophen 325 MG Tab PO PRN (21:27)
[2019-06-07] MEDS: Ibuprofen 200 MG Tab PO PRN (04:27)
[2019-06-07 07:03] LABS: ANION GAP 14.5; CHLORIDE,CL 102 mmol/L (101-111); SODIUM,NA 134 mmol/L (135-145)
[2019-06-07] MEDS ORDERED: Potassium Chloride 10 MEQ Tab.ER PO ONE (08:18)
[2019-06-07] MEDS: Enoxaparin 40 MG/0.4 ML Syringe SUBCUT SCH (08:27)
[2019-06-07] MEDS: guaiFENesin 600 MG Tab.ER PO SCH ×2 (08:27→20:12)
[2019-06-07] MEDS: Fluticasone Propionate Nasal Spray 16 GM Bottle NASBOTH SCH (08:28)
[2019-06-07] MEDS: Benzocaine/Cetylpyridinium/Menthol Lozenge MUCMEM PRN (08:28)
--- NOTE | 2019-06-07 10:35 | PCM.PN ---
- General Info Date of Service: 06/07/19 Admission Dx/Problem (Free Text): Admitted with: Fever, Chill, weakness, sore throat/Tonsillitis Subjective Update: Today she was seen in room and the inflammation of her throat is better she has no difficulty with swallowing solid food today Functional Status: Reports: Pain Controlled, Tolerating Diet, Ambulating, Urinating - Review of Systems General: Reports: Weakness, Appetite (acceptable). Denies: Fever, Chills HEENT: Reports: Headaches, Sore Throat. Denies: Dysphasia, Ear Pain, Sinus Congestion, Visual Changes Pulmonary: Denies: Shortness of Breath, Cough, Sputum, Wheezing Cardiovascular: Denies: Chest Pain, Dyspnea on Exertion, Lightheadedness Gastrointestinal: Reports: Difficulty Swallowing. Denies: Abdominal Pain, Nausea, Vomiting Genitourinary: Denies: Dysuria, Burning, Urgency, Flank Pain Musculoskeletal: Denies: Neck Pain, Shoulder Pain, Arm Pain, Leg Pain, Joint Pain, Joint Swelling Skin: Denies: Cyanosis, Jaundice, Bruising, Pruritis, Rash Neurological: Reports: Headache. Denies: Confusion, Tremors Psychiatric: Denies: Confusion, Anxiety, Agitation - Patient Data Vitals - Most Recent: Last Vital Signs Temp 36.8 C 06/07/19 08:05 Pulse 86 06/07/19 08:05 Resp 20 06/07/19 08:05 BP 116/72 06/07/19 08:05 Pulse Ox 98 06/07/19 08:05 Weight - Most Recent: 103.873 kg I&O - Last 24 Hours: Intake & Output 06/06/19 06/07/19 06/07/19 22:59 06:59 14:59 Intake Total 700 Balance 700 Lab Results Last 24 Hours: Laboratory Results - last 24 hr 06/07/19 06/07/19 Range/Units 06:23 06:23 WBC 14.8 H (5.0-10.0) 10^3/uL RBC 4.50 (4.2-5.4) 10^6/uL Hgb 11.9 L (12.0-16.0) g/dL Hct 36.0 L (37.0-47.0) % MCV 80.0 (80-100) fL MCH 26.4 L (27.0-34.0) pg MCHC 33.1 (33.0-35.0) g/dL Plt Count 244 (150-450) 10^3/uL Sodium 134 L (135-145) mmol/L Potassium 3.5 L (3.6-5.0) mmol/L Chloride 102 (101-111) mmol/L Carbon Dioxide 21.0 (21.0-31.0) mmol/L Anion Gap 14.5 BUN 9 (7-18) mg/dL Creatinine 0.5 L (0.6-1.3) mg/dL Est Cr Clr Drug Dosing 145.61 mL/min Estimated GFR (MDRD) > 60 Glucose 91 (74-105) mg/dL Calcium 8.4 (8.4-10.2) mg/dl [place] Results Last 24 Hours: Microbiology 06/05/19 10:48 Aerobic Blood Culture - Preliminary Blood - Venous - Lab Draw Anaerobic Blood Culture - Final 06/06/19 10:28 Quick Strep Confirmation Culture - Final Throat NO GROUP A STREP ISOLATED REFERENCE RANGE: NEGATIVE Group A Streptococcus Rapid Screen - Final NEGATIVE STREP A SCREEN REFERENCE RANGE: NEGATIVE 06/05/19 10:50 Aerobic Blood Culture - Preliminary Blood - Venous NO GROWTH AFTER 1 DAY Anaerobic Blood Culture - Preliminary NO GROWTH AFTER 1 DAY 06/05/19 10:02 Quick Strep Confirmation Culture - Final Throat NO GROUP A STREP ISOLATED REFERENCE RANGE: NEGATIVE Group A Streptococcus Rapid Screen - Final NEGATIVE STREP A SCREEN REFERENCE RANGE: NEGATIVE Med Orders - Current: Current Medications Acetaminophen (Tylenol) 650 mg PO Q4H PRN PRN Reason: Pain Last Admin: 06/06/19 21:27 Dose: 650 mg Benzocaine/Menthol (Cepacol Sore Throat) 1 lozenge MUCMEM Q4H PRN PRN Reason: Sore Throat Last Admin: 06/07/19 08:28 Dose: 1 lozenge Docusate Sodium (Colace) 100 mg PO DAILY PRN PRN Reason: Constipation Enoxaparin Sodium (Lovenox) 40 mg SUBCUT DAILY [facility] Last Admin: 06/07/19 08:27 Dose: 40 mg Fluticasone Propionate (Flonase) 0 gm NASBOTH DAILY [facility] Last Admin: 06/07/19 08:28 Dose: 2 spray Guaifenesin (Mucinex) 600 mg PO BID [facility] Last Admin: 06/07/19 08:27 Dose: 600 mg Ceftriaxone Sodium 2 gm/ (Sodium Chloride) 100 mls @ 200 mls/hr IV Q24H [facility] Last Infusion: 06/06/19 14:18 Dose: 200 mls/hr Vancomycin HCl 1.25 gm/ Sodium (Chloride) 250 mls @ 166.667 mls/hr IV Q8H [facility] Last Admin: 06/07/19 04:15 Dose: 166.667 mls/hr Ibuprofen (Motrin) 200 mg PO Q6H PRN PRN Reason: Pain/Fever Last Admin: 06/07/19 04:27 Dose: 200 mg Ondansetron HCl (Zofran) 4 mg IV Q6H PRN PRN Reason: Nausea/Vomiting Vancomycin HCl (Pharmacy To Dose - Vancomycin) 1 dose .XX ASDIRECTED [facility] Discontinued Medications Acetaminophen (Tylenol) 650 mg PO NOW ONE Stop: 06/05/19 10:31 Last Admin: 06/05/19 11:03 Dose: 650 mg Sodium Chloride (Normal Saline) 1,000 mls @ 999 mls/hr IV .BOLUS ONE Stop: 06/05/19 11:30 Last Admin: 06/05/19 10:54 Dose: 999 mls/hr Ceftriaxone Sodium 1 gm/ (Sodium Chloride) 50 mls @ 50 mls/hr IV ONETIME ONE Stop: 06/05/19 12:35 Last Admin: 06/05/19 11:50 Dose: 50 mls/hr Sodium Chloride (Normal Saline) 1,000 mls @ 999 mls/hr IV .BOLUS ONE Stop: 06/05/19 12:36 Last Admin: 06/05/19 12:33 Dose: 999 mls/hr Azithromycin 500 mg/ Sodium (Chloride) 250 mls @ 250 mls/hr IV ONETIME ONE Stop: 06/05/19 12:47 Last Admin: 06/05/19 13:41 Dose: Not Given Azithromycin 500 mg/ Sodium (Chloride) 250 mls @ 250 mls/hr IV ONETIME ONE Stop: 06/05/19 14:29 Last Admin: 06/05/19 13:40 Dose: 250 mls/hr Azithromycin 500 mg/ Sodium (Chloride) 250 mls @ 250 mls/hr IV Q24H [facility] Ceftriaxone Sodium 1 gm/ (Sodium Chloride) 50 mls @ 100 mls/hr IV ONETIME ONE Stop: 06/05/19 18:29 Last Admin: 06/05/19 17:59 Dose: 100 mls/hr Vancomycin HCl 1.5 gm/ Premix 300 mls @ 200 mls/hr IV ONETIME ONE Stop: 06/06/19 13:29 Last Infusion: 06/06/19 13:50 Dose: Infused Ketorolac Tromethamine (Toradol) 30 mg IVPUSH ONETIME ONE Stop: 06/05/19 10:31 Last Admin: 06/05/19 10:58 Dose: 30 mg Ondansetron HCl (Zofran) 4 mg IV ONETIME ONE Stop: 06/05/19 10:31 Last Admin: 06/05/19 10:56 Dose: 4 mg Potassium Chloride (Klor-Con 10) 40 meq PO ONETIME ONE Stop: 06/06/19 09:16 Last Admin: 06/06/19 10:34 Dose: 40 meq Potassium Chloride (Klor-Con 10) 20 meq PO ONETIME ONE Stop: 06/06/19 12:01 Last Admin: 06/06/19 11:51 Dose: 20 meq Potassium Chloride (Klor-Con 10) 40 meq PO ONETIME ONE Stop: 06/07/19 08:19 Last Admin: 06/07/19 09:52 Dose: 40 meq Sodium Chloride (Saline Flush) 10 ml FLUSH ASDIRECTED PRN PRN Reason: Keep Vein Open Last Admin: 06/06/19 14:19 Dose: 10 ml - Exam Quality Assessment: DVT Prophylaxis. No: Supplemental Oxygen, Urine Catheter General: Alert, Oriented, Cooperative, No Acute Distress HEENT: Pupils Equal, Mucous Membr. Moist/[place] Neck: No JVD, No Thyromegaly. No: Lymphadenopathy Lungs: Clear to Auscultation, Normal Respiratory Effort Cardiovascular: Regular Rate, Regular Rhythm, No Murmurs GI/Abdominal Exam: Normal Bowel Sounds, Non-Tender, No Organomegaly, No Distention. No: Rigid, Rebound (Female) Exam: Deferred Back Exam: Normal Inspection Extremities: Normal Inspection, No Pedal Edema Skin: Warm, Dry Neurological: No New Focal Deficit Psy/Mental Status: Alert, Normal Affect, Normal Mood Sepsis Event Note - Evaluation Sepsis Screening Result: Sepsis Risk - Focused Exam Vital Signs: Vital Signs Temp Pulse Resp BP Pulse Ox 06/07/19 08:05 36.8 C 86 20 116/72 98 06/07/19 04:00 36.6 C 97 18 124/79 97 06/06/19 23:12 36.2 C 96 20 111/79 96 Date Exam was Performed: 06/07/19 Time Exam was Performed: 10:30 - Problem List & Annotations (1) Fever and chills SNOMED Code(s): 426702913 Code(s): R50.9 - FEVER, UNSPECIFIED Status: Acute Current Visit: Yes (2) CAP (community acquired pneumonia) SNOMED Code(s): 537077177 Code(s): J18.9 - PNEUMONIA, UNSPECIFIED ORGANISM Status: Acute Current Visit: Yes (3) Sore throat SNOMED Code(s): 642718476 Code(s): J02.9 - ACUTE PHARYNGITIS, UNSPECIFIED Status: Acute Current Visit: Yes (4) Nausea SNOMED Code(s): 674396573 Code(s): R11.0 - NAUSEA Status: Acute Current Visit: Yes (5) Acute bacterial tonsillitis SNOMED Code(s): 210718830 Code(s): J03.80 - ACUTE TONSILLITIS DUE TO OTHER SPECIFIED ORGANISMS; B96.89 - OTH BACTERIAL AGENTS THE CAUSE OF DISEASES CLASSD ELSWHR Status: Acute Current Visit: Yes - Problem List Review Problem List Initiated/Reviewed/Updated: Yes - My Orders Last 24 Hours: My Active Orders 06/07/19 19:30 VANCOMYCIN TROUGH [CHEM] Timed 06/08/19 06:00 BASIC METABOLIC PANEL,BMP [CHEM] Routine CBC W/O DIFF,HEMOGRAM [HEME] Routine 06/06/19 11:10 Benzocaine/Cetylpyrd/Menthol [Cepacol Sore Throat] 1 lozenge MUCMEM Q4H PRN 06/06/19 11:11 guaiFENesin [Mucinex] 600 mg PO BID 06/06/19 11:15 Pharmacy to Dose - Vancomycin 1 dose .XX ASDIRECTED 06/06/19 13:00 cefTRIAXone [Rocephin] 2 gm Sodium Chloride 0.9% [Normal Saline] 100 ml IV Q24H 06/06/19 20:00 Vancomycin 1.25 gm Sodium Chloride 0.9% [Normal Saline] 250 ml IV Q8H - Plan Plan:: This is a 38 Y/O Moderately obese, pleasant Female with no significant past medical history except Hypertension during her , No history of glucose intolerance, came to ED with complain of headache, sore throat, Fever/Chill, Nausea all started yesterday ( 06/04/19) around 2-3 PM and progressively getting worse. Her throat swab was negative for Strep and Influenza A and B were also negative. Lab showed elevated White count 21k and sodium of 133 meq/ L. CXR showed B/L lower lobe infiltrates and admitted for CAP and now she has very inflamed tonsils 1. Likely Community acquired pneumonia: Pt had CXR showing B/L lung base Infiltrate -Will continue Ceftriaxone and Vancomycin -B/C grew gram positive cocci in clusters 2. Sore throat: Throat swab is negative for strep and also she Negative for Influenza A and B, will continue Cepacol 3. Nausea: Will continue Zofran as needed 4. Fever/Chill: Continue abx and Tylenol as needed 5. Tonsillitis: She gets tonsil inflammation recurrently, she has very large Tonsils and she needs Tonsillectomy but she is now likely has infected tonsils -Will continue her on Vancomycin started on 06/06/19 6. Nasal Congestion: Will continue Flonase and also Mucinex DVT prophylaxis: Continue Enoxaparin Code Status: Full Code
[2019-06-07] MEDS: cefTRIAXone 2 GM in Sodium Chloride 0.9% 100 ML IV SCH (14:17)
[2019-06-08 07:15] LABS: ANION GAP 16.2; CHLORIDE,CL 101 mmol/L (101-111); SODIUM,NA 135 mmol/L (135-145)
[2019-06-08] MEDS: guaiFENesin 600 MG Tab.ER PO SCH (08:40)
[2019-06-08] MEDS: Enoxaparin 40 MG/0.4 ML Syringe SUBCUT SCH (08:40)
[2019-06-08] MEDS: Fluticasone Propionate Nasal Spray 16 GM Bottle NASBOTH SCH (08:40)
[2019-06-08] MEDS ORDERED: Potassium Chloride 10 MEQ Tab.ER PO ONE (09:37)
[2019-06-08] MEDS ORDERED: Doxycycline 100 MG Cap PO SCH (10:30)
--- NOTE | 2019-06-12 10:52 | PCM.DCSUM1 ---
Discharge Summary - Hospital Course Free Text/Narrative:: This is a 38 Y/O Moderately obese, pleasant Female with no significant past medical history except Hypertension during her , No history of glucose intolerance, came to ED with complaint of headache, sore throat, Fever/Chill, Nausea all started yesterday ( 06/04/19) around 2-3 PM and progressively getting worse. Her throat swab was negative for Strep and Influenza A and B were also negative. Lab showed elevated White count 21k and sodium of 133 meq/ L. CXR showed B/L lower lobe infiltrates and admitted for CAP and now she has very inflamed tonsils. The patient symptoms improved with antibiotic treatment. I recommended further antibiotics but she would prefer to be discharged. Patient discharged in good condition 1. Likely Community acquired pneumonia: Pt had CXR showing B/L lung base Infiltrate Discharged on oral antibiotics 2. Sore throat: Throat swab is negative for strep and also she Negative for Influenza A and B, will continue Cepacol 3. Nausea: Resolved 4. Fever/Chill: Likely due to pneumonia 5. Tonsillitis: 6. Nasal Congestion: Will continue Flonase and also Mucinex - Discharge Data Discharge Date: 06/08/19 Discharge Disposition: Home, Self-Care 01 Condition: Good - Referral to Home Health Primary Care Physician: [facility] - Patient Instructions Diet: Regular Diet as Tolerated Activity: As Tolerated Driving: May Drive Today Showering/Bathing: May Shower Notify Provider of: Fever, Swelling and Redness, Nausea and/or Vomiting Other/Special Instructions: f/up with PMD in one week - Discharge Plan Prescriptions/Med Rec: Doxycycline [Vibramycin] 100 mg PO Q12HR #14 cap Cefdinir [Omnicef] 300 mg PO BID #14 cap Fluticasone Propionate [Flonase] 0 gm NASBOTH DAILY #1 bottle guaiFENesin [Mucinex] 600 mg PO BID #20 tab.er Home Medications: Home Meds Cefdinir [Omnicef] 300 mg PO BID #14 cap 06/08/19 [Rx] Doxycycline [Vibramycin] 100 mg PO Q12HR #14 cap 06/08/19 [Rx] Fluticasone Propionate [Flonase] 0 gm NASBOTH DAILY #1 bottle 06/08/19 [Rx] guaiFENesin [Mucinex] 600 mg PO BID #20 tab.er 06/08/19 [Rx] Patient Handouts: Tonsillitis, [id number], Cefdinir capsules, Fluticasone nasal spray, Doxycycline tablets or capsules, Guaifenesin oral ER tablets, Community-Acquired Pneumonia, Adult, [id number] Referrals: PCP,Unobtain [Ordering Only Provider] - - Discharge Summary/Plan Comment DC Time >30 min.: No - Review of Systems General: Reports: Malaise, Appetite HEENT: Reports: Sore Throat Pulmonary: Reports: No Symptoms Cardiovascular: Reports: No Symptoms Gastrointestinal: Reports: No Symptoms Musculoskeletal: Reports: No Symptoms Skin: Reports: No Symptoms - Patient Data Vitals - Most Recent: Last Vital Signs Temp 36.2 C 06/08/19 07:07 Pulse 88 06/08/19 07:07 Resp 20 06/08/19 07:07 BP 134/91 H 06/08/19 07:07 Pulse Ox 96 06/08/19 07:07 Weight - Most Recent: 103.873 kg Med Orders - Current: Current Medications Discontinued Medications Acetaminophen (Tylenol) 650 mg PO NOW ONE Stop: 06/05/19 10:31 Last Admin: 06/05/19 11:03 Dose: 650 mg Acetaminophen (Tylenol) 650 mg PO Q4H PRN PRN Reason: Pain Last Admin: 06/06/19 21:27 Dose: 650 mg Benzocaine/Menthol (Cepacol Sore Throat) 1 lozenge MUCMEM Q4H PRN PRN Reason: Sore Throat Last Admin: 06/07/19 08:28 Dose: 1 lozenge Docusate Sodium (Colace) 100 mg PO DAILY PRN PRN Reason: Constipation Doxycycline Hyclate (Vibramycin) 100 mg PO Q12HR [facility] Last Admin: 06/08/19 10:27 Dose: 100 mg Enoxaparin Sodium (Lovenox) 40 mg SUBCUT DAILY [facility] Last Admin: 06/08/19 08:40 Dose: 40 mg Fluticasone Propionate (Flonase) 0 gm NASBOTH DAILY [facility] Last Admin: 06/08/19 08:40 Dose: 1 spray Guaifenesin (Mucinex) 600 mg PO BID [facility] Last Admin: 06/08/19 08:40 Dose: 600 mg Sodium Chloride (Normal Saline) 1,000 mls @ 999 mls/hr IV .BOLUS ONE Stop: 06/05/19 11:30 Last Admin: 06/05/19 10:54 Dose: 999 mls/hr Ceftriaxone Sodium 1 gm/ (Sodium Chloride) 50 mls @ 50 mls/hr IV ONETIME ONE Stop: 06/05/19 12:35 Last Admin: 06/05/19 11:50 Dose: 50 mls/hr Sodium Chloride (Normal Saline) 1,000 mls @ 999 mls/hr IV .BOLUS ONE Stop: 06/05/19 12:36 Last Admin: 06/05/19 12:33 Dose: 999 mls/hr Azithromycin 500 mg/ Sodium (Chloride) 250 mls @ 250 mls/hr IV ONETIME ONE Stop: 06/05/19 12:47 Last Admin: 06/05/19 13:41 Dose: Not Given Azithromycin 500 mg/ Sodium (Chloride) 250 mls @ 250 mls/hr IV ONETIME ONE Stop: 06/05/19 14:29 Last Admin: 06/05/19 13:40 Dose: 250 mls/hr Ceftriaxone Sodium 2 gm/ (Sodium Chloride) 100 mls @ 200 mls/hr IV Q24H [facility] Last Infusion: 06/07/19 17:24 Dose: Infused Azithromycin 500 mg/ Sodium (Chloride) 250 mls @ 250 mls/hr IV Q24H [facility] Ceftriaxone Sodium 1 gm/ (Sodium Chloride) 50 mls @ 100 mls/hr IV ONETIME ONE Stop: 06/05/19 18:29 Last Admin: 06/05/19 17:59 Dose: 100 mls/hr Vancomycin HCl 1.5 gm/ Premix 300 mls @ 200 mls/hr IV ONETIME ONE Stop: 06/06/19 13:29 Last Infusion: 06/06/19 13:50 Dose: Infused Vancomycin HCl 1.25 gm/ Sodium (Chloride) 250 mls @ 166.667 mls/hr IV Q8H [facility] Last Admin: 06/07/19 23:45 Dose: Not Given Vancomycin HCl 1.25 gm/ Sodium (Chloride) 250 mls @ 166.667 mls/hr IV Q8H [facility] Last Infusion: 06/08/19 07:35 Dose: Infused Ibuprofen (Motrin) 200 mg PO Q6H PRN PRN Reason: Pain/Fever Last Admin: 06/07/19 04:27 Dose: 200 mg Ketorolac Tromethamine (Toradol) 30 mg IVPUSH ONETIME ONE Stop: 06/05/19 10:31 Last Admin: 06/05/19 10:58 Dose: 30 mg Ondansetron HCl (Zofran) 4 mg IV ONETIME ONE Stop: 06/05/19 10:31 Last Admin: 06/05/19 10:56 Dose: 4 mg Ondansetron HCl (Zofran) 4 mg IV Q6H PRN PRN Reason: Nausea/Vomiting Potassium Chloride (Klor-Con 10) 40 meq PO ONETIME ONE Stop: 06/06/19 09:16 Last Admin: 06/06/19 10:34 Dose: 40 meq Potassium Chloride (Klor-Con 10) 20 meq PO ONETIME ONE Stop: 06/06/19 12:01 Last Admin: 06/06/19 11:51 Dose: 20 meq Potassium Chloride (Klor-Con 10) 40 meq PO ONETIME ONE Stop: 06/07/19 08:19 Last Admin: 06/07/19 09:52 Dose: 40 meq Potassium Chloride (Klor-Con 10) 40 meq PO ONETIME ONE Stop: 06/08/19 09:38 Last Admin: 06/08/19 10:07 Dose: 40 meq Sodium Chloride (Saline Flush) 10 ml FLUSH ASDIRECTED PRN PRN Reason: Keep Vein Open Last Admin: 06/06/19 14:19 Dose: 10 ml Vancomycin HCl (Pharmacy To Dose - Vancomycin) 1 dose .XX ASDIRECTED FREDIS - Exam General: Reports: Alert, Oriented Neck: Reports: Supple, Lymphadenopathy Lungs: Reports: Clear to Auscultation, Normal Respiratory Effort Cardiovascular: Reports: Regular Rate, Regular Rhythm
== END 2019-06-08 11:42 | disposition home or self-care (01) | DRG 139 ==
LOC: DL.ED 09:43 → DL.MS 12:39
PROVIDERS: ADMIT Internal Medicine Nephrology; ATTEND Hospitalist
DX: J18.9 Pneumonia, unspecified organism (principal); J03.81 Acute recurrent tonsillitis due to other specified organisms; B96.89 Other specified bacterial agents as the cause of diseases classified elsewhere; K21.9 Gastro-esophageal reflux disease without esophagitis; J20.9 Acute bronchitis, unspecified; I10 Essential (primary) hypertension; E66.9 Obesity, unspecified; Z90.49 Acquired absence of other specified parts of digestive tract; Z68.37 Body mass index [BMI] 37.0-37.9, adult
CPT/HCPCS: 36415; 71045; 80048; 80053; 80202; 81001; 81025; 83605; 85025; 85027; 87040; 87077; 87081; 87186; 87430; 87804; 96361; 96365; 96375; 99284-25; A9270-GY; J0456; J0696; J1650; J1885; J2405; J3370; J7030; J7050

== ENCOUNTER 2020-08-30 03:17 | Emergency (ER) | payer BC, OTHER ==
[2020-08-30] MEDS ORDERED: Sodium Chloride 0.9% 1,000 ML IV ONE (03:46)
[2020-08-30] MEDS ORDERED: HYDROmorphone 1 MG/ML Syringe IVPUSH ONE (03:46)
--- NOTE | 2020-08-30 03:47 | EDM.PDOC ---
ED HPI GENERAL MEDICAL PROBLEM - General Chief Complaint: Abdominal Pain Stated Complaint: RIGHT ABDOMINAL PAIN GOING DOWN,NAUSEA Time Seen by Provider: 08/30/20 03:35 Source of Information: Reports: Patient, RN History Limitations: Reports: No Limitations - History of Present Illness INITIAL COMMENTS - FREE TEXT/NARRATIVE: 40-year-old female who presents to the ER with her spouse for complaints of left sided abdominal pain. Patient reports pain began more than 9 hours ago and she has tried medicating with Tylenol and Advil with little relief. She rates her pain as a 8 out of 10 with 10 being the worse. She described pain as sharp and throbbing at times. She reports she has had this type of pain in the past usually resolves in an hour or 2 but this time, it is persistent. She denies any history of kidney stones. Denies any urinary tract infection symptoms. She denies any fevers, chills, shortness of breath, palpitations at this time. Right Flank Pain Score (Numeric/FACES): 8 - Related Data Allergies Allergy/AdvReac Type Severity Reaction Status Date / Time No Known Allergies Allergy Verified 08/30/20 04:04 Home Meds: Home Meds . 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: Musculoskeletal History: Reports: None Neurological History: Reports: None Psychiatric History: Reports: None Endocrine/Metabolic History: Reports: None Hematologic History: Reports: None Immunologic History: Reports: None Oncologic (Cancer) History: Reports: None Dermatologic History: Reports: None - Infectious Disease History Infectious Disease History: Reports: Chicken Pox - Past Surgical History Head Surgeries/Procedures: Reports: None Cardiovascular Surgical History: Reports: None GI Surgical History: Reports: Appendectomy Female Surgical History: Reports: Section Musculoskeletal Surgical History: Reports: Other (See Below) Other Musculoskeletal Surgeries/Procedures:: patient states she had surgery on right ankle in 2008 Social & Family History - Family History Family Medical History: No Pertinent Family History - Caffeine Use Caffeine Use: Reports: Coffee, Soda Other Caffeine Use: occ ED ROS GENERAL - Review of Systems Review Of Systems: Comprehensive ROS is negative, except as noted in HPI. ED EXAM, GI/ABD - Physical Exam Exam: See Below Exam Limited By: No Limitations General Appearance: Alert, Moderate Distress Eyes: Bilateral: Normal Appearance Ears: Normal External Exam, Normal Canal, Hearing Grossly Normal, Normal TMs Nose: Normal Inspection, Normal Mucosa, No Blood Throat/Mouth: Normal Inspection, Normal Oropharynx, Normal Voice, No Airway Compromise Head: Atraumatic, Normocephalic Neck: Normal Inspection, Supple, Non-Tender, Full Range of Motion Respiratory/Chest: No Respiratory Distress, Lungs Clear, Normal Breath Sounds, No Accessory Muscle Use, Chest Non-Tender Cardiovascular: Normal Peripheral Pulses, Regular Rate, Rhythm, No Edema, No Gallop, No JVD, No Murmur, No Rub GI/Abdominal Exam: Soft, Tender (with right side abdominal pain) (Female) Exam: Deferred Rectal (Female) Exam: Deferred Back Exam: Normal Inspection, Full Range of Motion Extremities: Normal Inspection, Normal Range of Motion, Non-Tender, Normal Capillary Refill, No Pedal Edema Neurological: Alert, Oriented, Normal Cognition, Normal Gait Psychiatric: Anxious Skin Exam: Warm, Intact Lymphatic: No Adenopathy Course - Vital Signs Last Recorded V/S: Last Vital Signs Temp 97.2 F 08/30/20 03:34 Pulse 72 08/30/20 03:34 Resp 18 08/30/20 03:34 BP 140/99 H 08/30/20 03:34 Pulse Ox 99 08/30/20 03:34 - Orders/Labs/Meds Labs: Laboratory Tests 08/30/20 08/30/20 08/30/20 Range/Units 03:40 03:40 03:40 WBC (5.0-10.0) 10^3/uL RBC (4.2-5.4) 10^6/uL Hgb (12.0-16.0) g/dL Hct (37.0-47.0) % MCV (80-100) fL MCH (27.0-34.0) pg MCHC (33.0-35.0) g/dL Plt Count (150-450) 10^3/uL Neut % (Auto) (42.2-75.2) % Lymph % (Auto) (20.5-50.1) % Price % (Auto) (2-8) % Eos % (Auto) (1.0-3.0) % Baso % (Auto) (0.0-1.0) % Sodium (136-145) mmol/L Potassium (3.5-5.1) mmol/L Chloride (98-107) mmol/L Carbon Dioxide (21-32) mmol/L Anion Gap (7-13) mEq/L BUN (7-18) mg/dL Creatinine (0.55-1.02) mg/dL Est Cr Clr Drug Dosing mL/min Estimated GFR (MDRD) BUN/Creatinine Ratio (No establ ref range) Glucose (74-99) mg/dL Calcium (8.5-10.1) mg/dL Total Bilirubin (0.2-1.0) mg/dL AST (15-37) U/L ALT (14-59) U/L Alkaline Phosphatase (46-116) U/L Total Protein (6.4-8.2) g/dL Albumin (3.4-5.0) g/dL Globulin Albumin/Globulin Ratio Urine Color Yellow (YELLOW) Urine Appearance Slightly cloudy (CLEAR) Urine pH 6.0 (5.0-9.0) Ur Specific [place] >= 1.030 (1.005-1.030) Urine Protein Negative (NEGATIVE) Urine Glucose (UA) Negative (NEGATIVE) Urine Ketones Negative (NEGATIVE) Urine Occult Blood Small H (NEGATIVE) Urine Nitrite Negative (NEGATIVE) Urine Bilirubin Negative (NEGATIVE) Urine Urobilinogen 0.2 (0.2-1.0) mg/dL Ur Leukocyte Esterase Trace H (NEGATIVE) Urine RBC 10-20 H /HPF Urine WBC 10-20 H (0-5/HPF) /HPF Ur Epithelial Cells Many H (NOT SEEN) /HPF Amorphous Sediment Few (NOT SEEN) /HPF Urine Bacteria Moderate H (0-FEW/HPF) /HPF Urine Mucus Rare (NOT SEEN) /LPF Urine Other See note Urine HCG, Qual Negative Urine Opiates Screen Negative (NEGATIVE) Ur Oxycodone Screen Negative (NEGATIVE) Urine Methadone Screen Negative (NEGATIVE) Ur Barbiturates Screen Negative (NEGATIVE) U Tricyclic Antidepress Negative (NEGATIVE) Ur Phencyclidine Scrn Negative (NEGATIVE) Ur Amphetamine Screen Negative (NEGATIVE) U Methamphetamines Scrn Negative (NEGATIVE) Urine MDMA Screen Negative (NEGATIVE) U Benzodiazepines Scrn Negative (NEGATIVE) Urine Cocaine Screen Negative (NEGATIVE) U Marijuana (THC) Screen Negative (NEGATIVE) 08/30/20 08/30/20 Range/Units 03:44 03:44 WBC 10.6 H (5.0-10.0) 10^3/uL RBC 4.62 (4.2-5.4) 10^6/uL Hgb 11.9 L (12.0-16.0) g/dL Hct 36.4 L (37.0-47.0) % MCV 78.8 L (80-100) fL MCH 25.8 L (27.0-34.0) pg MCHC 32.7 L (33.0-35.0) g/dL Plt Count 317 (150-450) 10^3/uL Neut % (Auto) 73.3 (42.2-75.2) % Lymph % (Auto) 17.7 L (20.5-50.1) % Price % (Auto) 7.5 (2-8) % Eos % (Auto) 1.2 (1.0-3.0) % Baso % (Auto) 0.3 (0.0-1.0) % Sodium 138 (136-145) mmol/L Potassium 3.7 (3.5-5.1) mmol/L Chloride 103 (98-107) mmol/L Carbon Dioxide 23 (21-32) mmol/L Anion Gap 15.7 H (7-13) mEq/L BUN 13 (7-18) mg/dL Creatinine 1.28 H (0.55-1.02) mg/dL Est Cr Clr Drug Dosing 55.79 mL/min Estimated GFR (MDRD) 47 BUN/Creatinine Ratio 10.2 (No establ ref range) Glucose 92 (74-99) mg/dL Calcium 8.3 L (8.5-10.1) mg/dL Total Bilirubin 0.4 (0.2-1.0) mg/dL AST 12 L (15-37) U/L ALT 30 (14-59) U/L Alkaline Phosphatase 76 (46-116) U/L Total Protein 7.7 (6.4-8.2) g/dL Albumin 3.7 (3.4-5.0) g/dL Globulin 4.0 Albumin/Globulin Ratio 0.9 Urine Color (YELLOW) Urine Appearance (CLEAR) Urine pH (5.0-9.0) Ur Specific [place] (1.005-1.030) Urine Protein (NEGATIVE) Urine Glucose (UA) (NEGATIVE) Urine Ketones (NEGATIVE) Urine Occult Blood (NEGATIVE) Urine Nitrite (NEGATIVE) Urine Bilirubin (NEGATIVE) Urine Urobilinogen (0.2-1.0) mg/dL Ur Leukocyte Esterase (NEGATIVE) Urine RBC /HPF Urine WBC (0-5/HPF) /HPF Ur Epithelial Cells (NOT SEEN) /HPF Amorphous Sediment (NOT SEEN) /HPF Urine Bacteria (0-FEW/HPF) /HPF Urine Mucus (NOT SEEN) /LPF Urine Other Urine HCG, Qual Urine Opiates Screen (NEGATIVE) Ur Oxycodone Screen (NEGATIVE) Urine Methadone Screen (NEGATIVE) Ur Barbiturates Screen (NEGATIVE) U Tricyclic Antidepress (NEGATIVE) Ur Phencyclidine Scrn (NEGATIVE) Ur Amphetamine Screen (NEGATIVE) U Methamphetamines Scrn (NEGATIVE) Urine MDMA Screen (NEGATIVE) U Benzodiazepines Scrn (NEGATIVE) Urine Cocaine Screen (NEGATIVE) U Marijuana (THC) Screen (NEGATIVE) Meds: Medications Discontinued Medications Generic Name Dose Route Start Last Admin Trade Name Freq PRN Reason Stop Dose Admin Hydromorphone HCl 1 mg 08/30/20 03:46 08/30/20 04:11 Hydromorphone 1 Mg/Ml Syringe IVPUSH 08/30/20 03:47 1 mg ONETIME ONE Administration Sodium Chloride 1,000 mls @ 1,000 mls/hr 08/30/20 03:46 08/30/20 03:52 Normal Saline IV 08/30/20 04:45 1,000 mls/hr .BOLUS ONE Administration Ondansetron HCl 4 mg 08/30/20 03:51 08/30/20 03:54 Ondansetron 4 Mg/2 Ml Sdv IVPUSH 08/30/20 03:52 4 mg ONETIME ONE Administration - Re-Assessments/Exams Free Text/Narrative Re-Assessment/Exam: Reviewed exam findings, lab results and CT scan results with patient. Patient was given IV fluids, Zofran and Dilaudid with resolution of symptoms. Patient was able to rest in the ER. Rx for Toradol and Fl Flomax sent home with patient. Encourage patient to push fluids. Encourage patient to follow-up with PCP in the clinic or return to ER if symptoms worsen. Departure - Departure Time of Disposition: 05:20 Disposition: Home, Self-Care 01 Clinical Impression: Kidney calculus Abdominal pain Qualifiers: Abdominal location: right lower quadrant Qualified Code(s): R10.31 - Right lower quadrant pain - Discharge Information Instructions: Abdominal Pain, Adult, [id number] Forms: ED Department Discharge Additional Instructions: Rx given for flomax and toradol. Drink plenty of fluids. Follow up with your provider in 5-7 days or return to the ER if no improvement noted.
[2020-08-30] MEDS ORDERED: Ondansetron 4 MG/2 ML SDV IVPUSH ONE (03:51)
[2020-08-30 04:10] LABS: ANION GAP 15.7 mEq/L (7-13)
--- NOTE | 2020-08-30 04:52 | CT ---
PROCEDURE INFORMATION: Exam: CT Abdomen And Pelvis Without Contrast Exam date and time: 08/30/2020 4:41 AM Age: 40 years old Clinical indication: Abdominal pain; Flank; Right; Additional info: Flank pain TECHNIQUE: Imaging protocol: Computed tomography of the abdomen and pelvis without contrast. Radiation optimization: All CT scans at this facility use at least one of these dose optimization techniques: automated exposure control; mA and/or kV adjustment per patient size (includes targeted exams where dose is matched to clinical indication); or iterative reconstruction. COMPARISON: No relevant prior studies available. FINDINGS: Lungs: The lung bases are clear. No effusion Liver: There is fatty infiltration of the liver. Gallbladder and bile ducts: There is cholelithiasis without wall thickening or pericholecystic fluid. Pancreas: Normal. No ductal dilation. Spleen: Normal. No splenomegaly. Adrenal glands: Normal. No mass. Kidneys and ureters: 9 mm right proximal ureteral stone with mild obstruction. Stomach and bowel: Unremarkable. No obstruction. No mucosal thickening. Appendix: Appendix has been removed. Intraperitoneal space: Unremarkable. No free air. No significant fluid collection. Vasculature: Unremarkable. No abdominal aortic aneurysm. Lymph nodes: Unremarkable. No enlarged lymph nodes. Urinary bladder: Unremarkable as visualized. Reproductive: Unremarkable as visualized. Bones/joints: Unremarkable. No acute fracture. Soft tissues: Unremarkable. IMPRESSION: 1. 9 mm right proximal ureteral stone with mild obstruction. 2. Fatty infiltration of the liver. 3. Cholelithiasis without cholecystitis.
== END 2020-08-30 05:27 | disposition home or self-care (01) ==
LOC: DL.ED 03:17
DX: N20.2 Calculus of kidney with calculus of ureter (principal); I10 Essential (primary) hypertension
CPT/HCPCS: 36415; 74176; 80053; 80305; 81001; 81025; 85025; 96374; 96375; 99284; J1170; J2405; J7030